=== PATIENT | female | born 1940 | race Caucasian/White ===

== ENCOUNTER 2016-12-20 20:11 | Observation (INO) | payer MEDICARE ==
[~2016-12-20] VITALS: Ht 162.6 cm; Wt 65.0 kg
[~2016-12-20 20:11] MED LIST: ACET80CH6 CHEW; CARV3.125 PO; CEFT250S PO; COEN100T PO; FEXO180 OR; FISH100020 PO; FLUT50SP EACH NARE; FURO20 PO; LEVO100T4 PO; MIRA25TA PO; NEUR100C PO; NEXI40CA PO; RAMI1.252 PO; RIVA20 PO; SUMA50TA2 PO; TAB-TAB PO; WAL-10TA2 PO; ZOLP10TA3 PO
[2016-12-20 20:35] VITALS: BP 154/69; PULSE 79; RESP 17; TEMP 99; O2SAT 98
--- NOTE | 2016-12-20 20:35 | PD ---
HPI Chief Complaint: altered mental status Time Seen by Provider: 20:34 Travel History International Travel<30 days: No Contact w/Intl Traveler<30days: No Traveled to known affect area: No History of Present Illness HPI 75-year-old female was brought into the emergency room by EMS after the family called 911 for abnormal behavior by the patient. The daughter is giving a very good history who was present in the room. She said that around 7:00 they were eating dinner and the daughter witnessed this. Her mother after she had finished of food suddenly started to scrape her plate in slow motion. This was a rapid to give motion which made the daughter aware of the abnormality. She asked the mother what she was doing and the mom started to respond slowly as if she did not realize what she was doing. Usually as per the daughter her mother is extremely sharp. She also tried to have her do a [id number] test and both her upper extremity were very wobbly approaching the nose. She had taken her pain medication about 2 hours prior to this event. As per the daughter she seemed like either she was having a seizure or very drugged. However she has been on this pain medication for couple years now and has never had this behavior. Patient did not take more than her usual dose of pain medication. Currently she was yawning and she was talking to me and her speech was slow. Daughter confirmed that this is slower than her usual. I was able to understand what patient was saying. She is AAO 3. Vital signs were stable. Patient is not complaining of any headache or chest pain. She says she just feels in general weak and heavy. Patient was diagnosed with muscular dystrophy over a year ago by a muscle biopsy. She sees Dr. Osborne for it. She is not on any medications for it and gets physical therapy. [facility] Past Medical History Narrative Medical List of her past medical, surgical, social and family history was reviewed from the nursing note. Hx Anticoagulant Therapy: Yes (XARELTO) Arthritis: Yes Asthma: No Autoimmune Disease: No Heart Rhythm Problems: No Cancer: Yes (LEFT BREAST 2004) Cardiovascular Problems: Yes High Cholesterol: Yes Chemotherapy: Yes Chest Pain: Yes Congestive Heart Failure: No COPD: No Cerebrovascular Accident: No Diminished Hearing: No Deep Vein Thrombosis: Yes Endocrine: No Gastrointestinal Disorders: Yes GERD: Yes Genitourinary: Yes (BLADDER SUSPENSION) Headaches: Yes Hepatitis: No Hiatal Hernia: No Hypertension: Yes Immune Disorder: No Implanted Vascular Access Dvce: Yes Musculoskeletal: Yes (Muscular Dystrophie) Neurologic: Yes Psychiatric: No Reproductive: No Respiratory: Yes Migraines: Yes Myocardial Infarction: No Seizures: No Sleep Apnea: No Ulcer: Yes Past Surgical History Abdominal Surgery: Yes AICD: No Appendectomy: Yes Body Medical Devices: COMPA EYE LENS Cardiac Surgery: Yes (Selenokhod Serial# [id number] Model#[id number]) Cholecystectomy: Yes (1991) Ear Surgery: No Endocrine Surgery: No Eye Surgery: Yes (cataract w implants) Genitourinary Surgery: Yes (BLADDER SUSPENSION) Gynecologic Surgery: Yes ([facility] oopherectomy 1973) Hysterectomy: Yes Mastectomy: Yes (left) Oral Surgery: Yes Pacemaker: Yes ([employer]TRONICS 3 WIRE) Thoracic Surgery: Yes (RT CAROTID ENDARECTOMY 2010) Tonsillectomy: Yes Other Surgery: Yes Social History Alcohol Use: Yes (SOCIALLY) Tobacco Use: No Substance Use: No Allergies-Medications (Allergen,Severity, Reaction): Coded Allergies: Adhesives (Verified Allergy, Severe, PAPER TAPE- ITCHING, 12/20/16) Codeine (Verified Allergy, Severe, Itching, 12/20/16) Oxycodone (Verified Allergy, Severe, 12/20/16) Shrimp (Verified Allergy, Severe, Rash, 12/20/16) Lipitor (Verified Allergy, Unknown, 12/20/16) PT DENIES THIS ALLERGY Comments List of her allergies reviewed from the nursing note. Reported Meds & Prescriptions Reported Meds & Active Scripts Active Reported Levothyroxine (Levothyroxine Sodium) 100 Mcg Tab 100 Mcg PO DAILY Duloxetine DR (Duloxetine HCl) 30 Mg Capdr 30 Mg PO HS Ambien (Zolpidem Tartrate) 10 Mg Tab 10 Mg PO HS PRN Bovill-3 Fish Oil/Vitamin (Fish Oil-Cholecalciferol) 1,000-1,000 Mg Cap 1 Cap PO DAILY Lasix (Furosemide) 20 Mg Tab 20 Mg PO DAILY Myrbetriq (Mirabegron) 50 Mg Tab 50 Mg PO DAILY Claritin (Loratadine) 10 Mg Cap 10 Mg PO DAILY Ubiquinol 100 Mg Cap 1 Cap PO DAILY D-Mannose Powder 1 Pow Pow 1 Cap PO BID Preservision Areds 2 (Multiple Vitamins W/ Minerals) 1 Cap 1 Cap PO DAILY Ramipril 1.25 Mg Cap 1.25 Mg PO DAILY Nexium (Esomeprazole DR) 20 Mg Capdr 20 Mg PO DAILY Fluticasone Nasal [place] 50 Mcg/Act Naspr 50 Mcg EACH NARE BID PRN 50 mcg/spray Spironolactone 25 Mg Tab 12.5 Mg PO BID Coreg (Carvedilol) 3.125 Mg Tab 3.125 Mg PO BID Centrum Silver (Multiple Vitamins W/ Minerals) 1 Tab 1 Tab PO DAILY Zyrtec Allergy (Cetirizine HCl) 10 Mg Tab 10 Mg PO DAILY Xarelto (Rivaroxaban) 20 Mg Tab 20 Mg PO DAILY Narrative Medication List of her home medications reviewed from the nursing note. Review of Systems Except as stated in HPI: all other systems reviewed are Neg Physical Exam Narrative GENERAL: Awake, alert, looks tired, no obvious distress SKIN: Focused skin assessment warm/dry. HEAD: Atraumatic. Normocephalic. EYES: Pupils equal and round. No scleral icterus. No injection or drainage. ENT: No nasal bleeding or discharge. Mucous membranes pink and moist. NECK: Trachea midline. No JVD. CARDIOVASCULAR: Regular rate and rhythm. No murmur appreciated. RESPIRATORY: No accessory muscle use. Clear to auscultation. Breath sounds equal bilaterally. GASTROINTESTINAL: Abdomen soft, non-tender, nondistended. Hepatic and splenic margins not palpable. MUSCULOSKELETAL: No obvious deformities. No clubbing. No cyanosis. No edema. NEUROLOGICAL: Awake and alert. No obvious cranial nerve deficits. Motor strength equal upper extremity 4 out of 5 and equal lower extremity 3 out of 5. Normal speech. NIH stroke score was 0 PSYCHIATRIC: Appropriate mood and affect; insight and judgment normal. Data Data Last Documented VS Vital Signs Date Time Temp Pulse Resp B/P Pulse Ox O2 Delivery O2 Flow Rate FiO2 12/20/16 20:54 83 18 154/69 99 Room Air 12/20/16 20:35 99.0 Orders Electrocardiogram (12/20/16 20:58) Prothrombin Time / Inr (Pt) (12/20/16 20:58) Act Partial Throm Time (Ptt) (12/20/16 20:58) Complete Blood Count With Diff (12/20/16 20:58) Basic Metabolic Panel (Bmp) (12/20/16 20:58) Troponin I (12/20/16 20:58) Urinalysis - C+S If Indicated (12/20/16 20:58) Ct Brain W/O Iv Contrast(Rout) (12/20/16 20:58) Chest, Single Ap (12/20/16 20:58) Ecg Monitoring (12/20/16 20:58) Iv Access Insert/Monitor (12/20/16 20:58) Oximetry (12/20/16 20:58) Sodium Chloride 0.9% Flush (Ns Flush) (12/20/16 21:00) Sodium Chlor 0.9% 250 Ml Inj (Ns 250 Ml (12/20/16 21:00) Eeg Study (12/20/16 ) Thyroid Stimulating Hormone (12/20/16 23:01) Admit Order (Ed Use Only) (12/20/16 23:04) Mri Brain W&W/O Contrast (12/21/16 ) Mra Brain W/O Contrast (Cow) (12/21/16 ) Labs Laboratory Tests Test 12/20/16 21:10 White Blood Count 5.1 TH/MM3 Red Blood Count 3.89 MIL/MM3 Hemoglobin 12.1 GM/DL Hematocrit 36.6 % Mean Corpuscular Volume 94.0 FL Mean Corpuscular Hemoglobin 31.0 PG Mean Corpuscular Hemoglobin 33.0 % Concent Red Cell Distribution Width 13.3 % Platelet Count 161 TH/MM3 Mean Platelet Volume 8.4 FL Neutrophils (%) (Auto) 45.6 % Lymphocytes (%) (Auto) 32.2 % Monocytes (%) (Auto) 18.7 % Eosinophils (%) (Auto) 2.9 % Basophils (%) (Auto) 0.6 % Neutrophils # (Auto) 2.3 TH/MM3 Lymphocytes # (Auto) 1.6 TH/MM3 Monocytes # (Auto) 1.0 TH/MM3 Eosinophils # (Auto) 0.1 TH/MM3 Basophils # (Auto) 0.0 TH/MM3 CBC Comment DIFF FINAL Differential Comment Prothrombin Time 12.0 SEC Prothromb Time International 1.1 RATIO Ratio Activated Partial 27.6 SEC Thromboplast Time Sodium Level 141 MEQ/L Potassium Level 4.4 MEQ/L Chloride Level 106 MEQ/L Carbon Dioxide Level 27.6 MEQ/L Anion Gap 7 MEQ/L Blood Urea Nitrogen 46 MG/DL Creatinine 0.77 MG/DL Estimat Glomerular Filtration 73 ML/MIN Rate Random Glucose 114 MG/DL Calcium Level 8.9 MG/DL Troponin I 0.05 NG/ML Thyroid Stimulating Hormone LESS THAN 3rd Gen 0.005 uIU/ML MDM Medical Decision Making Medical Screen Exam Complete: Yes Emergency Medical Condition: Yes Medical Record Reviewed: Yes Interpretation(s) Twelve-lead EKG was reviewed by me. Normal sinus rhythm, intermittently paced, normal axis, interventricular conduction delay. Heart rate of 77 bpm. Differential Diagnosis TIA, focal seizure, postictal Narrative Course 10:38 PM blood test results of back and within normal limit. CT scan of her head is within normal limit. Chest x-rays negative. Given the description and the presentation my suspicion is high for focal seizure with post ictal phase. I would like to admit the patient at least for observation at this point. I discussed this with the family and they understand. I ordered an MRI. However patient does have a pacemaker and AICD. I was told by the MRI that they would have to find out from the company if it is MRI compatible. At this point this MRI is not emergent and could wait till the morning. Awaiting for the hospitalist to call back. I will give her 1 dose of aspirin. I've also put a call out for neurology. Awaiting for Dr. Franco to call back. 11:05 PM I discussed the case with Dr. Franco and he was perfectly fine with the management so far. He agreed that there was a possibility of focal seizure. Since patient is on Xarelto no aspirin will be given. IV inquired about the reason for being on Xarelto from the family and it was because she had a DVT in her leg 3 years ago. Patient was admitted to the hospitalist. Procedures EKG Prior to Arrival: No Physician Communication Physician Communication Dr. Franco Diagnosis Primary Impression: Altered mental status Qualified Code: R40.0 - Somnolence Additional Impressions: Focal seizure Postictal state Admitting Information Admitting Physician Requests: Observation Rosy Kingston MD Dec 20, 2016 20:35
[2016-12-20 20:54] VITALS: BP 154/69; PULSE 83; RESP 18; O2SAT 99
[2016-12-20] MEDS ORDERED: SODIUM CHLORIDE 0.9% FLUSH 10 ML FLUSH IVF PRN (21:00)
[2016-12-20] MEDS ORDERED: SODIUM CHLOR 0.9% 250 ML INJ 250 ML IV ONE (21:00)
--- NOTE | 2016-12-20 21:37 | RADRPT ---
EXAM DATE/TIME: 12/20/2016 21:14 [facility] COMPARISON: CHEST SINGLE AP, January 23, 2016, 21:26. INDICATIONS : Short of breath MEDICAL HISTORY : Hypertension. Carcinoma, breast. SURGICAL HISTORY : Pacemaker. Left mastectomy with reconstruction. ENCOUNTER: Initial ACUITY: 1 day PAIN SCORE: 0/10 LOCATION: Bilateral chest FINDINGS: Moderate elevation of the right hemidiaphragm. Cardiome egaly. Clear lungs. Pacer/ICD device again se en. CONCLUSION: No acute disease. Galdino Amador MD on December 20, 2016 at 21:35 Board Certified Radiologist. This report was verified electronically.
[2016-12-20 21:47] LABS: AUTOMATED NEUTROPHIL # 2.3 TH/MM3 (1.8-7.7); BASOPHIL % 0.6 % (0.0-2.0); EOSINOPHIL # 0.1 TH/MM3 (0-0.4); EOSINOPHIL % 2.9 % (0.0-4.0); HEMATOCRIT 36.6 % (35.0-46.0); HEMO FLAGS DIFF FINAL; LYMPH % 32.2 % (9.0-44.0); LYMPHOCYTE # 1.6 TH/MM3 (1.0-4.8); MONO % 18.7 % (0.0-8.0); NEUT % 45.6 % (16.0-70.0); PLATELET COUNT 161 TH/MM3 (150-450); RED BLOOD COUNT 3.89 MIL/MM3 (4.00-5.30); RED CELL DISTRIBUTION WIDTH 13.3 % (11.6-17.2); WHITE BLOOD COUNT 5.1 TH/MM3 (4.0-11.0)
--- NOTE | 2016-12-20 21:56 | RADRPT ---
EXAM DATE/TIME: 12/20/2016 21:41 [facility] COMPARISON: CT BRAIN W/O CONTRAST, June 22, 2015, 20:42. INDICATIONS : Altered mental status. RADIATION DOSE: 39.03 CTDIvol (mGy) MEDICAL HISTORY : Gastroesophageal reflux disease. Cardiovascular disease Deep venous thrombosis.Breast cancer. Hyperte nsion. SURGICAL HISTORY : Mastectomy, left. Pacemaker.Hysterectomy.Cholecystecomy. ENCOUNTER: Initial ACUITY: 1 day PAIN SCALE: 0/10 LOCATION: cranial TECHNIQUE: Multiple contiguous axial images were obtained of the head. Using automated exposure control and adj ustment of the mA and/or kV according to patient size, radiation dose was kept as low as reasonably a chievable to obtain optimal diagnostic quality images. FINDINGS: There is mild volume loss and patchy periventricular white matter disease which is stable. No signs o f acute infarct, hemorrhage or mass. CONCLUSION: No significant change has occurred. Galdino Amador MD on December 20, 2016 at 21:54 Board Certified Radiologist. This report was verified electronically.
[2016-12-20 21:59] LABS: APTT (PATIENT) 27.6 SEC (24.3-30.1); INTERNATIONAL NORMALIZED RATIO 1.1 RATIO
[2016-12-20 22:11] LABS: BICARBONATE 27.6 MEQ/L (21.0-32.0); POTASSIUM 4.4 MEQ/L (3.5-5.1)
[2016-12-20] MEDS ORDERED: ZYRT10TA PO (22:23)
[2016-12-20] MEDS ORDERED: SPIR25TA PO (22:23)
[2016-12-20] MEDS ORDERED: FLUT50SP EACH NARE (22:23)
[2016-12-20] MEDS ORDERED: PRESCAP5 PO (22:23)
[2016-12-20] MEDS ORDERED: RAMI1.252 PO (22:23)
[2016-12-20] MEDS ORDERED: XARE20TA PO (22:23)
[2016-12-20] MEDS ORDERED: FURO1TAB62 PO (22:23)
[2016-12-20] MEDS ORDERED: CENTTAB PO (22:23)
[2016-12-20] MEDS ORDERED: MIRA50TA PO (22:23)
[2016-12-20] MEDS ORDERED: CARV3.125 PO (22:23)
[2016-12-20] MEDS ORDERED: D-MAPOW8 PO (22:23)
[2016-12-20] MEDS ORDERED: NEXI20CA PO (22:23)
[2016-12-20] MEDS ORDERED: UBIQ100C PO (22:23)
[2016-12-20] MEDS ORDERED: CLAR10CA3 PO (22:23)
[2016-12-20] MEDS ORDERED: LEVO100T5 PO (22:27)
[2016-12-20] MEDS ORDERED: AMBI10TA PO (22:27)
[2016-12-20] MEDS ORDERED: OMEGCAP PO (22:27)
[2016-12-20] MEDS ORDERED: DULO1CAP2 PO (22:27)
[2016-12-20] MEDS ORDERED: ZOLPIDEM TARTRATE 10 MG TAB PO PRN (23:30)
[2016-12-20] MEDS ORDERED: SODIUM CHLORIDE 0.9% FLUSH 10 ML FLUSH IV FLUSH PRN (23:30)
[2016-12-20] MEDS ORDERED: NALOXONE HCL 0.4 MG/ML AMP IV PRN (23:30)
[2016-12-20 23:59] LABS: BLOOD, URINE NEG (NEG); GLUCOSE,URINE NEG (NEG); KETONE, URINE NEG (NEG); MUCUS URINE FEW /lpf (OCC); NITRITE,URINE NEG (NEG); SQUAMOUS EPITHELIAL CELL URINE <1 /hpf (0-5); URINE COLOR YELLOW (YELLW/STRAW)
[2016-12-21] VITALS (10 sets, daily range): BP systolic 109–162; BP diastolic 60–74; PULSE 74–84; RESP 15–20; TEMP 95.8–98.6; O2SAT 95–99
[2016-12-21] LABS: COMMENT (UR) CATH-CULT NOT IND; CULTURE IF INDICATED CATH CULTURE NOT IND
[2016-12-21] MEDS ORDERED: DULoxetine HCl DR 30 MG CAP PO ONE (01:30)
--- NOTE | 2016-12-21 01:43 | HHI.HP ---
[facility] Anand Evans M.D. Admission Diagnosis altered mental status, possible focal seizure Diagnoses: Travel History International Travel<30 Days: No Contact w/Intl Traveler <30 Da: No Traveled to Known Affected Are: No History of Present Illness History from patient, ER physician communication, and review of medical records. Patient reported that she does not remember the entire event. She states she doesn't even remember how she got to the hospital. However according to her daughter spoke to the ER physician, patient was at dinner table eating dinner and started tapping her fork on the table. When asked why she was doing that, patient was not aware of it. Patient also was not able to answer questions properly. She was having extremely slow speech. Patient stated that she does not even remember her daughter asking her all these questions. She thought somehow that she finished her dinner and was in the kitchen. She however is denies passing out episode. She stated her daughter states she was awake all this time with her eyes opened and just was extremely slow in response. Patient denies any new medications. denies any prior history of seizures. She reports she is taking pain medications but she has been on it for many years and only takes it once a day or so. She is also taking Cymbalta which was started a year ago. Patient however reported that she has syncopal episodes previously and does happen quite often. She states for this reason, she has not driven a car for 3 years. She denies any urinary or bowel incontinence. Patient also denies any recent fever/nausea/vomiting/diarrhea. She denies any black color stool or red color stool. She denies any chest pain/palpitations/shortness of breath/focal weakness. She reports of history of frequent bladder infections and the latest one was about a month ago for which she took Cipro. Review of Systems Except as stated in HPI: all other systems reviewed are Neg Past Family Social History Past Medical History htn - but under control ; had low bp easily ppm aicd afib chf - was 30% musuclar dystrophy insomnia dvt - on xarelto hypothyroidism breast ca- s/p left mastectomy ; s/pchemo; herceptin - finsihed 2006 right eye area canceraous Past Surgical History mastectomy hysterectomy right eye area tumore removal bladder lift bilateral oopherectomy appendectomy 1992- cholecystectomy Allergies: Coded Allergies: Adhesives (Verified Allergy, Severe, PAPER TAPE- ITCHING, 12/20/16) Codeine (Verified Allergy, Severe, Itching, 12/20/16) Oxycodone (Verified Allergy, Severe, 12/20/16) Shrimp (Verified Allergy, Severe, Rash, 12/20/16) Lipitor (Verified Allergy, Unknown, 12/20/16) PT DENIES THIS ALLERGY Family History brother- agent orange exposure- of cancer multiple members Social History no smoking/ no drinking/ no drugs Physical Exam Vital Signs Vital Signs Date Time Temp Pulse Resp B/P Pulse Ox O2 Delivery O2 Flow Rate FiO2 12/21/16 01:09 95.8 77 18 162/74 99 12/21/16 00:35 77 15 151/72 97 Room Air 12/21/16 00:34 19 97 Room Air 12/20/16 20:54 83 18 154/69 99 Room Air 12/20/16 20:40 81 13 99 Room Air 12/20/16 20:35 99.0 79 17 154/69 98 Physical Exam GENERAL: This is a well-nourished, well-developed patient, in no apparent distress. SKIN: No rashes, ecchymoses or lesions. Cool and dry. HEAD: Atraumatic. Normocephalic. No temporal or scalp tenderness. EYES: No scleral icterus. No injection or drainage. ENT: Nose without bleeding, purulent drainage or septal hematoma.. Airway patent. NECK: Trachea midline. No JVD CARDIOVASCULAR: Regular rate and rhythm without murmurs, gallops, or rubs. RESPIRATORY: Clear to auscultation. Breath sounds equal bilaterally. No wheezes , rales, or rhonchi. GASTROINTESTINAL: Abdomen soft, non-tender, nondistended. No guarding. MUSCULOSKELETAL: Extremities without clubbing, cyanosis, or edema.. No calf tenderness NEUROLOGICAL: Awake and alert. Motor and sensory grossly within normal limits. Normal speech. Laboratory Laboratory Tests Test 12/20/16 12/20/16 21:10 23:45 White Blood Count 5.1 Red Blood Count 3.89 Hemoglobin 12.1 Hematocrit 36.6 Mean Corpuscular Volume 94.0 Mean Corpuscular Hemoglobin 31.0 Mean Corpuscular Hemoglobin 33.0 Concent Red Cell Distribution Width 13.3 Platelet Count 161 Mean Platelet Volume 8.4 Neutrophils (%) (Auto) 45.6 Lymphocytes (%) (Auto) 32.2 Monocytes (%) (Auto) 18.7 Eosinophils (%) (Auto) 2.9 Basophils (%) (Auto) 0.6 Neutrophils # (Auto) 2.3 Lymphocytes # (Auto) 1.6 Monocytes # (Auto) 1.0 Eosinophils # (Auto) 0.1 Basophils # (Auto) 0.0 CBC Comment DIFF FINAL Differential Comment Prothrombin Time 12.0 Prothromb Time International 1.1 Ratio Activated Partial 27.6 Thromboplast Time Sodium Level 141 Potassium Level 4.4 Chloride Level 106 Carbon Dioxide Level 27.6 Anion Gap 7 Blood Urea Nitrogen 46 Creatinine 0.77 Estimat Glomerular Filtration 73 Rate Random Glucose 114 Calcium Level 8.9 Troponin I 0.05 Thyroid Stimulating Hormone LESS THAN 3rd Gen 0.005 Urine Color YELLOW Urine Turbidity CLEAR Urine pH 6.0 Urine Specific [place] 1.020 Urine Protein NEG Urine Glucose (UA) NEG Urine Ketones NEG Urine Occult Blood NEG Urine Nitrite NEG Urine Bilirubin NEG Urine Urobilinogen LESS THAN 2.0 Urine Leukocyte Esterase SMALL Urine RBC 1 Urine WBC 3 Urine Squamous Epithelial <1 Cells Urine Mucus FEW Microscopic Urinalysis Comment CATH-CULT NOT IND Result Diagram: 12/20/16210912/20/162109 Imaging Last [address] 12/20/162057 Signed Impressions: Service Date/Time: Tuesday, December 20, 2016 21:41 - CONCLUSION: No significant change has occurred. Galdino Amador MD Chest X-Ray 12/20/162057 Signed Impressions: Service Date/Time: Tuesday, December 20, 2016 21:14 - CONCLUSION: No acute disease. Galdino Amador MD Assessment and Plan Problem List: (1) Focal seizure ICD Code: R56.9 Status: Acute (2) Altered mental status ICD Code: R41.82 Status: Acute (3) Postictal state ICD Code: R56.9 Status: Acute Assessment and Plan Impression: Possible seizures History of brain cyst per patient. PMH: htn - but under control ; had low bp easily ppm aicd afib chf - was 30% musuclar dystrophy insomnia dvt - on xarelto hypothyroidism breast ca- s/p left mastectomy ; s/pchemo; herceptin - finsihed 2006 right eye area canceraous lesion Plan: Seizure precautions. EEG. Neurology consult. Patient reports that she has history of her brain cyst in previous CT imaging studies. However she states this is quite small. May need MRI studies to confirm whether these are the focus of her seizures. However patient does have pacemaker/defibrillator. Would need to call [employer] to deactivate. We'll follow up on patient's neurologist recommendations. Resume home meds. DVT prophylaxis Xarelto. Discussed Condition With patient, ER Problem Qualifiers (1) Altered mental status: Qualified Code: R40.0 - Somnolence Trini Alvarado MD Dec 21, 2016 01:43
[2016-12-21] MEDS ORDERED: LEVOTHYROXINE SODIUM 100 MCG TAB PO SCH (06:00)
[2016-12-21 07:05] LABS: AUTOMATED NEUTROPHIL # 1.8 TH/MM3 (1.8-7.7); BASOPHIL % 0.8 % (0.0-2.0); EOSINOPHIL # 0.2 TH/MM3 (0-0.4); EOSINOPHIL % 4.7 % (0.0-4.0); HEMATOCRIT 35.5 % (35.0-46.0); HEMO FLAGS DIFF FINAL; LYMPH % 38.5 % (9.0-44.0); LYMPHOCYTE # 1.8 TH/MM3 (1.0-4.8); MEAN CELL VOLUME 94.2 FL (80.0-100.0); MEAN CORPUSCULAR HEMOGLOBIN 32.4 PG (27.0-34.0); MEAN CORPUSCULAR HGB CONC 34.4 % (32.0-36.0); MONO % 18.3 % (0.0-8.0); NEUT % 37.7 % (16.0-70.0); PLATELET COUNT 157 TH/MM3 (150-450); RED BLOOD COUNT 3.77 MIL/MM3 (4.00-5.30); RED CELL DISTRIBUTION WIDTH 13.3 % (11.6-17.2); WHITE BLOOD COUNT 4.7 TH/MM3 (4.0-11.0)
[2016-12-21 07:45] LABS: BICARBONATE 26.9 MEQ/L (21.0-32.0); POTASSIUM 4.2 MEQ/L (3.5-5.1)
--- NOTE | 2016-12-21 08:45 | EKG ---
Date Performed: 12/20/2016 Time Performed: 21:57:02 PTAGE: 75 years EKG: Normal Sinus rhythm wiuth occasional aberrantely conducted QRS complexes Voltage criteria for LVH High lateral T wave in version, consider ischemia ABNORMAL ECG PREVIOUS TRACING : 01/23/2016 21.16 Compared to previous tracing, aberrantly conducted complexe s are now evident, nonspecific intraventricular conduction delay morphology has changed. DOCTOR: Boo Velazquez Interpretating Date/Time 12/21/2016 08:44:02
[2016-12-21] MEDS ORDERED: SODIUM CHLORIDE 0.9% FLUSH 10 ML FLUSH IV FLUSH SCH (09:00)
[2016-12-21] MEDS ORDERED: PANTOPRAZOLE SOD 20 MG DELAYED RELEASE TAB PO SCH (09:00)
[2016-12-21] MEDS ORDERED: RAMIPRIL 1.25 MG CAP PO SCH (09:00)
[2016-12-21] MEDS ORDERED: CARVEDILOL 3.125 MG TAB PO SCH (09:00)
[2016-12-21] MEDS ORDERED: SPIRONOLACTONE 25 MG TAB PO SCH (09:00)
[2016-12-21] MEDS ORDERED: FUROSEMIDE 20 MG TAB PO SCH (09:00)
[2016-12-21] MEDS ORDERED: RIVAROXABAN 20 MG TAB PO SCH (09:00)
[2016-12-21] MEDS ORDERED: GADODIAMIDE PF 287 MG/ML 5 ML VIAL (for RAD MRI) IV ONE (09:45)
--- NOTE | 2016-12-21 10:54 | RADRPT ---
EXAM DATE/TIME: 12/21/2016 09:18 [facility] COMPARISON: MRA BRAIN W/O CONTRAST, June 24, 2015, 12:29. INDICATIONS : Dizziness. Altered mental status. MEDICAL HISTORY : Carcinoma, breast. Hypertension. SURGICAL HISTORY : Tonsillectomy. Appendectomy. Cholecystectomy. carotid artery, Medtronic pacer/defib, left mastectomy, bladder lift ENCOUNTER: Subsequent ACUITY: 2 day PAIN SCORE: 0/10 LOCATION: cranial Please note a normal MRA of the brain does not entirely exclude the possibility of a small aneurysm, nor the possibility of distal intracranial vessel disease. TECHNIQUE: 3D time of flight MRA was performed. Source images, multiplanar STS MIP, and 3D volume MIP reconstru ctions were reviewed. FINDINGS: There is excellent visualization of the major intracranial arteries out to the second-order branch ve ssels. There is no evidence for aneurysm, vessel truncation or stenosis, and no evidence for vascula r malformation. There is a patent posterior communicating artery on the left. An aplastic A1 segment is present on the right CONCLUSION: 1. Froylan Duran MD on December 21, 2016 at 10:51 Board Certified Radiologist. This report was verified electronically.
--- NOTE | 2016-12-21 10:56 | RADRPT ---
EXAM DATE/TIME: 12/21/2016 09:18 [facility] COMPARISON: MRI BRAIN W & W/O CONTRAST, May 04, 2013, 13:16. INDICATIONS : Altered mental status. Dizziness. CONTRAST: 13 cc Omniscan (gadodiamide) IV MEDICAL HISTORY : Carcinoma, breast. Hypertension. SURGICAL HISTORY : Tonsillectomy. Appendectomy. Cholecystectomy. carotid artery, Medtronic pacer/defib, left mastectomy, bladder lift ENCOUNTER: Subsequent ACUITY: 1 day PAIN SCORE: 0/10 LOCATION: cranial TECHNIQUE: Multiplanar, multisequence MRI of the brain was performed both prior to and following the administrat ion of paramagnetic contrast. FINDINGS: MRI of the brain is performed in sagittal, axial and coronal planes. The craniocervical junction and midline structures are unremarkable. Diffusion weighted images demonstrate no abnormality. There is n o evidence of acute cortical infarction, acute hemorrhage, mass effect or midline shift is seen. Ther e is periventricular hyperintensity on the T2 weighted images consistent with small vessel vascular d isease significantly more than expected in a patient of this age. Following the administration of con trast no abnormal enhancement is identified. Posterior fossa structures are unremarkable. CONCLUSION: 1. No evidence of acute intracranial pathology. Chronic ischemic changes as above. Froylan Duran MD on December 21, 2016 at 10:53 Board Certified Radiologist. This report was verified electronically.
[2016-12-21] MEDS ORDERED: ACETAMINOPHEN 325 MG TAB PO PRN (12:45)
--- NOTE | 2016-12-21 15:11 | PD.CONS ---
History of Present Illness Service Neurology Consult Requested By [facility] Reason for Consult sz Primary Care Physician Anand Evans M.D. History of Present Illness 75 y/o f admitted for amnestic type episode. after dinner. became confused, slow to think, respond and move. improved by the time she got to er. the pt does not have any recollection of this. no luna, no b/b incontinence. no jerking. she is on xarelto. glucose 114. bp 154/69. ct brain naicp. mri brain no acute lesion. mra brain nml. no previous occurrence similar to this. no hx of sz. hx of recurrent syncope. has a pacemaker. followed by cardiology locally and has been seen at [facility] and also followed at [facility]. has depressed EF. She denies any urinary or bowel incontinence. Patient also denies any recent fever/nausea/vomiting/diarrhea. She denies any chest pain/palpitations/shortness of breath/focal weakness. Review of Systems Except as stated in HPI: all other systems reviewed are Neg Past Family Social History Past Medical History htn - but under control ; had low bp easily ppm aicd afib chf - was 30% muscular dystrophy insomnia dvt - on xarelto hypothyroidism breast ca- s/p left mastectomy ; s/p chemo; herceptin - finsihed 2006 right eye area cancerous Past Surgical History mastectomy hysterectomy right eye area tumore removal bladder lift bilateral oopherectomy appendectomy 1992- cholecystectomy Allergies: Coded Allergies: Adhesives (Verified Allergy, Severe, PAPER TAPE- ITCHING, 12/20/16) Codeine (Verified Allergy, Severe, Itching, 12/20/16) Oxycodone (Verified Allergy, Severe, 12/20/16) Shrimp (Verified Allergy, Severe, Rash, 12/20/16) Lipitor (Verified Allergy, Unknown, 12/20/16) PT DENIES THIS ALLERGY Family History mother with probable muscular dystrophy Social History no smoking/ no drinking/ no drugs Review of Systems All other ROS: ROS reviewed as documented in chart Past Family Social History Allergies: Coded Allergies: Adhesives (Verified Allergy, Severe, PAPER TAPE- ITCHING, 12/20/16) Codeine (Verified Allergy, Severe, Itching, 12/20/16) Oxycodone (Verified Allergy, Severe, 12/20/16) Shrimp (Verified Allergy, Severe, Rash, 12/20/16) Lipitor (Verified Allergy, Unknown, 12/20/16) PT DENIES THIS ALLERGY Active Ordered Medications Current Medications Medications (Trade) Dose Ordered Sig/Ester Route Start Time Stop Time Status Last Admin (NS Flush) 2 ml UNSCH PRN IV FLUSH 12/20/16 23:30 (NS Flush) 2 ml BID IV FLUSH 12/21/16 09:00 12/21/16 10:31 (Narcan Inj) 0.4 mg UNSCH PRN IV 12/20/16 23:30 (Coreg) 3.125 mg BID PO 12/21/16 09:00 12/21/16 08:41 (Cymbalta Dr) 30 mg HS PO 12/21/16 21:00 (Lasix) 20 mg DAILY PO 12/21/16 09:00 12/21/16 08:41 (Altace) 1.25 mg DAILY PO 12/21/16 09:00 12/21/16 08:40 (Xarelto) 20 mg DAILY PO 12/21/16 09:00 12/21/16 08:41 (Aldactone) 12.5 mg BID PO 12/21/16 09:00 12/21/16 10:31 (Ambien) 10 mg HS PRN PO 12/20/16 23:30 12/21/16 02:11 (Protonix) 20 mg DAILY PO 12/21/16 09:00 12/21/16 08:41 Patient Own Medication PT OWN MED: Tabl... DAILY PO 12/22/16 09:00 Future Hold (Synthroid) 50 mcg DAILY@06 PO 12/22/16 06:00 (Tylenol) 650 mg Q4H PRN PO 12/21/16 12:45 12/21/16 13:01 Exam I&O / VS 12/20/16 12/20/16 12/21/16 15:00 23:00 07:00 Intake Total 240 ml Output Total 300 ml Balance -60 ml Intake Oral 240 ml Output Urine Total 300 ml Vital Signs Date Time Temp Pulse Resp B/P Pulse Ox O2 Delivery O2 Flow Rate FiO2 12/21/16 12:04 84 12/21/16 11:16 97.6 74 20 137/61 96 12/21/16 07:54 97.6 76 18 153/67 95 12/21/16 04:00 97.2 83 17 134/60 98 12/21/16 03:59 80 12/21/16 01:30 77 12/21/16 01:09 95.8 77 18 162/74 99 12/21/16 00:35 77 15 151/72 97 Room Air 12/21/16 00:34 19 97 Room Air 12/20/16 20:54 83 18 154/69 99 Room Air 12/20/16 20:40 81 13 99 Room Air 12/20/16 20:35 99.0 79 17 154/69 98 General: Alert and Oriented, No acute distress Eye: EOMI Respiratory: Non-labored respirations Neurologic: Alert, Oriented, No focal defects, CN II-XII intact Psychiatric: Cooperative, Appropriate mood & affect, Normal judgement Exam Comments ox 3. no aphasia. follows. eomi, vff, face sym, panda to gravity, mild proximal weakness Review/Management Diagnosis/Plan: (1) Altered mental status Plan: resolved transient etiology: sz/tia/cardiac has depressed EF on xarelto mri/mra negative had recent carotid u/s with cardiology- negative recs f/u eeg if negative ok to d/c home later today or in am and f/u with us in the office tele pacemaker should get interrogated d/w pt, spouse, daughter no driving (2) A-fib (3) Hereditary progressive muscular dystrophy Plan: +muscle biopsy +hx in mother (4) CHF (congestive heart failure) Problem Qualifiers (1) Altered mental status: Qualified Code: R40.0 - Somnolence (2) A-fib: Qualified Code: I48.0 - Paroxysmal atrial fibrillation (3) CHF (congestive heart failure): Darrell Yarbrough MD Dec 21, 2016 15:11
--- NOTE | 2016-12-21 17:42 | HHI.PR ---
Addendum to Inpatient Note Addendum Reason: Additional Documentation Additional Information RN informs me that the patient left AGAINST MEDICAL ADVICE. Reportedly the patient and family did not want to stay another night in the hospital in the observation unit because they did not like the room. Neurology evaluated the patient and recommended following up EEG results and having pacemaker interrogated. (Roberto Mora) Roberto Mora Dec 21, 2016 17:42 Mandie Hickey MD Dec 21, 2016 21:23
--- NOTE | 2016-12-21 19:22 | MG ---
cc: [facility] Lab No: Date: 12/21/2016 Age: Sex: F Race: Cc. TEST NUMBER [id number] TECHNIQUE 17 channel EEG. DESCRIPTION Background rhythm is symmetrical alpha rhythm, frequency 8-9 Hz. Amplitude is 20 microvolts. During drowsiness there is mild slowing in the theta range. Some sleep activity is identified as well. There are no lateralizing features seen and no epileptiform discharges are present. Photic results in a fairly well-developed driving response. Vertex sharp waves are seen consistent with sleep. I do not see any definite epileptiform discharges. INTERPRETATION Normal EEG. MD LYLE Salas/BOONE /7:09 PM /7:20 PM
[2016-12-21] MEDS ORDERED: DULoxetine HCl DR 30 MG CAP PO SCH (21:00)
[2016-12-22] MEDS ORDERED: LEVOTHYROXINE SODIUM 50 MCG TAB PO SCH (06:00)
[2016-12-22] MEDS ORDERED: MIRABEGRON 50 MG PO SCH (09:00)
== END 2016-12-21 17:19 | disposition home or self-care (01) ==
LOC: NEPE 20:11 → NEDA 23:06 → NEPFCDU 12-21 00:47
PROVIDERS: ADMIT Hospitalist; ATTEND Hospitalist
DX: G40.89 Other seizures (principal); R40.0 Somnolence; G71.0 Muscular dystrophy; I48.0 Paroxysmal atrial fibrillation; I11.0 Hypertensive heart disease with heart failure; I50.9 Heart failure, unspecified; E03.9 Hypothyroidism, unspecified; E78.00 Pure hypercholesterolemia, unspecified; K21.9 Gastro-esophageal reflux disease without esophagitis; Z79.01 Long term (current) use of anticoagulants; Z85.3 Personal history of malignant neoplasm of breast; Z90.12 Acquired absence of left breast and nipple; Z92.21 Personal history of antineoplastic chemotherapy; Z95.0 Presence of cardiac pacemaker
CPT/HCPCS: 70450; 70544; 70553; 71010; 80048; 81001; 84443; 84484; 85025; 85610; 85730; 93005; 95819; 96374; 99285; A9579; G0378; J7050

== ENCOUNTER → 2017-04-28 | Outpatient (CLI) | payer MEDICARE ==
[~2017-04-28] MED LIST changes: -ACET80CH6 CHEW; +AMBI10TA PO; -CEFT250S PO; +CENTTAB PO; +CLAR10CA3 PO; -COEN100T PO; +D-MAPOW8 PO; +DULO1CAP2 PO; -FEXO180 OR; -FISH100020 PO; +FURO1TAB62 PO; -FURO20 PO; -LEVO100T4 PO; +LEVO100T5 PO; -MIRA25TA PO; +MIRA50TA PO; -NEUR100C PO; +NEXI20CA PO; -NEXI40CA PO; +OMEGCAP PO; +PRESCAP5 PO; -RIVA20 PO; +SPIR25TA PO; -SUMA50TA2 PO; -TAB-TAB PO; +UBIQ100C PO; -WAL-10TA2 PO; +XARE20TA PO; -ZOLP10TA3 PO; +ZYRT10TA PO
--- NOTE | 2017-04-28 16:00 | RADRPT ---
EXAM DATE/TIME: 04/28/2017 14:13 [facility] COMPARISON: No previous studies available for comparison. INDICATIONS : Radiculopathy. MEDICAL HISTORY : Carcinoma, breast. Hypertension. SURGICAL HISTORY : Appendectomy. Carotid endarterectomy. Cholecystectomy. Medtronic pacer/defib, left mastectomy, bladde r lift, hysterectomy. ENCOUNTER: Initial ACUITY: 1 week PAIN SCORE: 3/10 LOCATION: Lower back. TECHNIQUE: Multiplanar multisequence MRI of the lumbar spine was performed without contrast. FINDINGS: MRI of the lumbar spine was performed in sagittal and axial planes. There is anterolisthesis likely r elated to facet arthritis at L5-S1-1-3 to 4 mm with retrolisthesis of L2-L3 and L3-L4. There is multi level disc space narrowing and marginal osteophyte formation maximal at L2-L3. There is a nodule in t he right adrenal gland likely reflecting adenoma measuring 2 cm No focal areas of marrow replacement are identified. The conus terminates normally. Axial images were performed from T12-L1 through L5-S1. T12-L1: There is no significant spinal canal stenosis. There is a tiny central protrusion to the right withou t spinal stenosis or neural foraminal narrowing. The neural foramina are clear bilaterally. L1-L2: There is mild annular bulge of the disc. There is moderate facet arthritis bilaterally with ligamentu m flavum hypertrophy. The neural foramina are clear bilaterally. L2-L3: There is broad-based annular bulge of disc. There is moderate to severe spinal canal stenosis. There is severe neural foraminal narrowing on the right. There is mild left sided neural foraminal narrowin g. L3-L4: There is mild annular bulge of the disc. There is mild to moderate spinal canal stenosis. There is mo derate facet arthritis bilaterally with ligamentum flavum hypertrophy. There is severe neural foramin al narrowing on the left. L4-L5: There is broad-based annular bulge of disc. There is severe facet arthritis bilaterally with ligament um flavum hypertrophy impinging on the thecal sac. The neural foramina are clear bilaterally. L5-S1: There is broad-based annular bulge of disc. There is severe spinal canal stenosis. . There is severe neural foraminal narrowing bilaterally. CONCLUSION: 1. 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 2. Severe multilevel foraminal narrowing. Froylan Duran MD on April 28, 2017 at 15:10 Board Certified Radiologist. This report was verified electronically.
--- NOTE | 2017-04-28 16:06 | RADRPT ---
EXAM DATE/TIME: 04/28/2017 14:13 [facility] COMPARISON: No previous studies available for comparison. INDICATIONS : Weakness. Known MRI Precautions: Pacemaker. Sedation utilized? Anesthesia present? MRI reaction? If Yes, explain : MEDICAL HISTORY : Carcinoma, breast. Hypertension. SURGICAL HISTORY : Appendectomy. Carotid endarterectomy. Cholecystectomy. Medtronic pacer/defib, left mastectomy, bladde r lift, hysterectomy. ENCOUNTER: Initial ACUITY: 1 week PAIN SCORE: 3/10 LOCATION: Left hip. TECHNIQUE: Multiplanar, multisequence MRI examination was performed without contrast. FINDINGS: There is no evidence of acute fracture. No focal areas of marrow placement are identified. The joint space is maintained. A physiologic amount of fluid is present within the joint. Soft tissue structur es are intact with normal signal intensity. No tendon abnormality is identified. CONCLUSION: 1. Negative MRI of the left hip Froylan Duran MD on April 28, 2017 at 15:58 Board Certified Radiologist. This report was verified electronically.
== END ==
LOC: HRAD 13:07
PROVIDERS: ATTEND Specialist
DX: M47.27 Other spondylosis with radiculopathy, lumbosacral region (principal); M62.81 Muscle weakness (generalized); G71.0 Muscular dystrophy
CPT/HCPCS: 72148; 73721

== ENCOUNTER 2017-08-05 22:13 | Emergency (ER) | payer MEDICARE ==
[~2017-08-05] VITALS: Ht 162.6 cm; Wt 67.0 kg
[~2017-08-05 22:13] MED LIST changes: -UBIQ100C PO; +UBIQ1CAP2 PO
[2017-08-05 22:15] VITALS: BP 112/77; PULSE 91; RESP 16; TEMP 97.9; O2SAT 96
[2017-08-05] MEDS ORDERED: D-MAPOW4 (22:44)
[2017-08-05] MEDS ORDERED: OCUVTAB4 PO (22:44)
[2017-08-05] MEDS ORDERED: LEVE500 PO (22:44)
[2017-08-05] MEDS ORDERED: CETI10CH CHEW (22:44)
[2017-08-05] MEDS ORDERED: ACETAMINOPHEN 325 MG TAB PO ONE (22:45)
--- NOTE | 2017-08-05 22:50 | RADRPT ---
EXAM DATE/TIME: 08/05/2017 22:43 [facility] COMPARISON: No previous studies available for comparison. INDICATIONS : Pain from fall. MEDICAL HISTORY : None. SURGICAL HISTORY : None. ENCOUNTER: Initial ACUITY: 1 day PAIN SCORE: 9/10 LOCATION: Right medial wrist. FINDINGS: There is an acute fracture involving the distal shaft of the right ulna. The radius is intact. Modera te osteoarthritis is noted involving the first carpometacarpal joint. Diffuse osteopenia is noted. CONCLUSION: 1. Acute fracture involving the distal shaft of the right ulna. 2. Diffuse osteopenia. 3. Moderate osteoarthritis is noted involving the first carpometacarpal joint. Enrique Navarro MD on August 05, 2017 at 22:47 Board Certified Radiologist. This report was verified electronically.
--- NOTE | 2017-08-05 23:05 | RADRPT ---
EXAM DATE/TIME: 08/05/2017 22:40 [facility] COMPARISON: CT BRAIN W/O CONTRAST, December 20, 2016, 21:41. INDICATIONS : Trauma, patient fell. RADIATION DOSE: 56.41 CTDIvol (mGy) MEDICAL HISTORY : Hypertension. Cardiovascular disease SURGICAL HISTORY : Pacemaker. Cholecystectomy.Appendectomy. ENCOUNTER: Initial ACUITY: 1 day PAIN SCALE: 3/10 LOCATION: cranial TECHNIQUE: Multiple contiguous axial images were obtained of the head. Using automated exposure control and adj ustment of the mA and/or kV according to patient size, radiation dose was kept as low as reasonably a chievable to obtain optimal diagnostic quality images. DICOM format image data is available electro nically for review and comparison. FINDINGS: CEREBRUM: Cerebral atrophy is stable. No evidence of midline shift, mass lesion, hemorrhage or acute infarction . No extra-axial fluid collections are seen. Mild to moderate periventricular and subcortical white matter small vessel ischemic changes are noted bilaterally. POSTERIOR FOSSA: The cerebellum and brainstem are intact. The 4th ventricle is midline. The cerebellopontine angle i s unremarkable. EXTRACRANIAL: The visualized portion of the orbits is intact. SKULL: The calvaria is intact. No evidence of skull fracture. CONCLUSION: 1. Stable cerebral atrophy and mild to moderate periventricular/subcortical white matter small vessel ischemic changes bilaterally. 2. No acute infarct, acute hemorrhage, mass effect or extra-axial fluid collections. Enrique Navarro MD on August 05, 2017 at 23:00 Board Certified Radiologist. This report was verified electronically.
--- NOTE | 2017-08-05 23:22 | PD ---
HPI . Wrist injury Chief Complaint: Fall Time Seen by Provider: 22:32 Travel History International Travel<30 days: No Contact w/Intl Traveler<30days: No Traveled to known affect area: No History of Present Illness HPI This patient has a history of muscular dystrophy which makes her prone to falling. She has had 2 falls today. She fell earlier today and struck her head. She denies loss of consciousness but is on Xarelto. She has not had any subsequent symptoms of head injury such as blurred vision, intractable vomiting , confusion. She had a second fall this evening injuring her right wrist. She comes in complaining with continued pain in the wrist. Pain is exacerbated by movement. Pain is rated 9/10. She has not taken any Tylenol, etc. for the pain. PFSH Past Medical History Hx Anticoagulant Therapy: Yes (XERALTO) Arthritis: Yes Asthma: No Autoimmune Disease: No Heart Rhythm Problems: No Cancer: Yes (LEFT BREAST 2003) High Cholesterol: Yes Chemotherapy: Yes Chest Pain: Yes Congestive Heart Failure: No COPD: No Cerebrovascular Accident: No Diminished Hearing: No Deep Vein Thrombosis: Yes Endocrine: No Gastrointestinal Disorders: Yes GERD: Yes Genitourinary: Yes (bladder suspension) Headaches: Yes Hepatitis: No Hiatal Hernia: No Hypertension: Yes Immune Disorder: No Implanted Vascular Access Dvce: Yes Medical other: Yes (LEFT EYE WET MACULAR DEGERATION) Musculoskeletal: Yes (Muscular Dystrophy) Neurologic: Yes Psychiatric: No Reproductive: No Respiratory: Yes Migraines: Yes Myocardial Infarction: No Seizures: No Sleep Apnea: No Ulcer: Yes Tetanus Vaccination: < 5 Years ?: Not Menopausal: Yes Past Surgical History Abdominal Surgery: Yes AICD: No Appendectomy: Yes Body Medical Devices: COMPA EYE LENS Cardiac Surgery: Yes (Medtronic Serial# [id number] Model#[id number]) Cholecystectomy: Yes (1991) Ear Surgery: No Endocrine Surgery: No Eye Surgery: Yes (cataract w implants) Genitourinary Surgery: Yes (BLADDER SUSPENSION) Gynecologic Surgery: Yes ([facility] oopherectomy 1973) Hysterectomy: Yes Mastectomy: Yes (left) Oral Surgery: Yes Pacemaker: Yes ([employer]TR[employer] 3 WIRE, DEFIB) Thoracic Surgery: Yes (RT CAROTID ENDARECTOMY 2010) Tonsillectomy: Yes Other Surgery: Yes Social History Alcohol Use: No Tobacco Use: No Substance Use: No Allergies-Medications (Allergen,Severity, Reaction): Coded Allergies: adhesive (Verified Allergy, Severe, PAPER TAPE- ITCHING, 08/05/17) codeine (Verified Allergy, Severe, Itching, 08/05/17) oxycodone (Verified Allergy, Severe, 08/05/17) shrimp (Verified Allergy, Severe, Rash, 08/05/17) atorvastatin (Verified Allergy, Unknown, 08/05/17) PT DENIES THIS ALLERGY Reported Meds & Prescriptions Reported Meds & Active Scripts Active Reported Keppra (Levetiracetam) 500 Mg Tab 500 Mg PO BID D-Mannose Powder (Bulk) 99 % Pow Cetirizine (Cetirizine HCl) 10 Mg Chew 10 Mg CHEW DAILY Preservision Areds (Multiple Vitamins W/ Minerals) 1 Tab 1 Tab PO DAILY Levothyroxine (Levothyroxine Sodium) 100 Mcg Tab 100 Mcg PO DAILY Duloxetine DR (Duloxetine HCl) 30 Mg Capdr 30 Mg PO HS Sebastian-3 Fish Oil/Vitamin (Fish Oil-Cholecalciferol) 1,000-1,000 Mg Cap 1 Cap PO DAILY Lasix (Furosemide) 20 Mg Tab 20 Mg PO DAILY Myrbetriq (Mirabegron) 50 Mg Tab 50 Mg PO DAILY Ubiquinol 100 Mg Cap 1 Cap PO DAILY Ramipril 1.25 Mg Cap 1.25 Mg PO DAILY Nexium (Esomeprazole DR) 20 Mg Capdr 20 Mg PO DAILY Fluticasone Nasal [place] 50 Mcg/Act Naspr 50 Mcg EACH NARE BID PRN 50 mcg/spray Spironolactone 25 Mg Tab 12.5 Mg PO BID Coreg (Carvedilol) 3.125 Mg Tab 3.125 Mg PO BID Xarelto (Rivaroxaban) 20 Mg Tab 20 Mg PO DAILY Review of Systems Except as stated in HPI: all other systems reviewed are Neg Musculoskeletal: Positive: Arthralgias Physical Exam Narrative GENERAL: Awake and alert and in no acute distress. SKIN: Warm and dry. HEAD: Normocephalic/atraumatic. EYES: Pupils are equal. Extraocular movements are intact. NECK: Normal range of motion. CARDIOVASCULAR: Regular rate and rhythm. RESPIRATORY: Nonlabored respirations. MUSCULOSKELETAL: Tenderness just proximal to the right wrist. Minimal swelling. No gross deformity. Distally neurovascularly intact. NEUROLOGICAL: Nonfocal. PSYCHIATRIC: Appropriate mood and affect. Data Data Last Documented VS Vital Signs Date Time Temp Pulse Resp B/P (MAP) Pulse Ox O2 Delivery O2 Flow Rate FiO2 08/05/17 22:15 97.9 91 16 112/77 (89) 96 Room Air Orders Orders Acetaminophen (Tylenol) (08/05/17 22:45) Ct Brain W/O Iv Contrast(Rout) (08/05/17 22:32) Wrist, Complete (Hdg2qem) (08/05/17 22:32) [employer] Request For Service (08/05/17 22:59) Sling Cradle Arm (08/05/17 ) Fiberglass Sugartong Sp Ad Arm (08/05/17 ) MDM Medical Decision Making Medical Screen Exam Complete: Yes Emergency Medical Condition: Yes Differential Diagnosis My differential diagnosis of head trauma includes but is not limited to scalp contusion, concussion, intracerebral hemorrhage. Differential diagnosis of extremity trauma includes but is not limited to fracture, sprain or strain, dislocation, contusion Narrative Course This patient presents mainly for the evaluation of a right wrist injury. She also fell and hit her head today. She is on Xarelto. She does not have any signs or symptoms of a head injury. Last Impressions Wrist X-Ray [id number]/05/[id number] Signed Impressions: Service Date/Time: Saturday, August 05, 2017 22:43 - CONCLUSION: 1. Acute fracture involving the distal shaft of the right ulna. 2. Diffuse osteopenia. 3. Moderate osteoarthritis is noted involving the first carpometacarpal joint. Enrique Navarro MD Head CT [id number]/05/[id number] Signed Impressions: Service Date/Time: Saturday, August 05, 2017 22:40 - CONCLUSION: 1. Stable cerebral atrophy and mild to moderate periventricular/subcortical white matter small vessel ischemic changes bilaterally. 2. No acute infarct, acute hemorrhage, mass effect or extra-axial fluid collections. Enrique Navarro MD Her arm has been splinted by the [employer]. Diagnosis Primary Impression: Right distal ulnar fracture Qualified Codes: S52.601A - Unspecified fracture of lower end of right ulna, initial encounter for closed fracture Referrals: Amandeep Rosales MD 1 week Patient Instructions: Arm Fracture in Adults (ED), General Instructions, RICE Therapy (ED) Additional Instructions: Tylenol as needed for pain Med/Other Pt SpecificInfo: Prescription(s) given Disposition: 01 DISCHARGE HOME Condition: Stable An Gonzalez MD Aug 05, 2017 23:22
== END 2017-08-06 00:03 | disposition home or self-care (01) ==
LOC: NEPC 22:13
DX: S52.601A Unspecified fracture of lower end of right ulna, initial encounter for closed fracture (principal); G71.0 Muscular dystrophy; M19.031 Primary osteoarthritis, right wrist; E78.00 Pure hypercholesterolemia, unspecified; K21.9 Gastro-esophageal reflux disease without esophagitis; I10 Essential (primary) hypertension; W18.00XA Striking against unspecified object with subsequent fall, initial encounter; Z86.718 Personal history of other venous thrombosis and embolism; Z79.899 Other long term (current) drug therapy
CPT/HCPCS: 29125; 70450; 73110

== ENCOUNTER 2018-03-03 22:19 | Observation (INO) ==
--- NOTE | 2018-03-03 23:04 | ED ---
HPI General Chief Complaint: Syncope Stated Complaint: Isra Blood Sugar/Evac Time Seen by Provider: 03/03/18 22:26 Source: patient History of Present Illness HPI narrative: 77yo F with PMH of muscular dystrophy with AICD here with c/o syncope. Pt was feeling lightheaded and thinks she sat down but unsure and woke up in the ambulance. Said when she woke up she had chest tightness and nausea. Said her chest tightness resolved by the time she arrived. Pt's lozenge maker helper is Dr. Merritt. Said she has had syncope episode from low blood pressure before. Denies any fever, sob, n/v, abdominal pain, new focal weakness or numbness. Related Data Home Medications Medication Instructions Recorded Confirmed carvedilol [Coreg] 3.125 mg PO BID 03/04/18 03/04/18 duloxetine [Cymbalta] 60 mg PO DAILY 03/04/18 03/04/18 fexofenadine 180 mg PO DAILY 03/04/18 03/04/18 furosemide 20 mg PO DAILY 03/04/18 03/04/18 levothyroxine 50 mcg PO DAILY 03/04/18 03/04/18 mirabegron [Myrbetriq] 50 mg PO DAILY 03/04/18 03/04/18 ramipril [Altace] 1.25 PO AC LUNCH 03/04/18 03/04/18 rivaroxaban [Xarelto] 20 mg PO DAILY 03/04/18 03/04/18 spironolactone 12.5 mg PO BID 03/04/18 03/04/18 zolpidem [Ambien] HS PRN 03/04/18 03/04/18 Previous Rx's Medication Instructions Recorded levetiracetam [Keppra] 1,000 mg PO BID tab 03/05/18 Allergies Allergy/AdvReac Type Severity Reaction Status Date / Time adhesive Allergy Severe PAPER Verified 08/05/17 22:31 TAPE- ITCHING codeine Allergy Severe Itching Verified 08/05/17 22:31 oxycodone Allergy Severe Verified 08/05/17 22:31 shrimp Allergy Severe Rash Verified 08/05/17 22:31 atorvastatin Allergy Unknown Verified 08/05/17 22:31 [facility] Medical History Medical History HTN (hypertension) (Acute) Deep vein thrombosis (DVT) of left lower extremity (Chronic) Muscular dystrophy (Chronic) H/O: hysterectomy (Acute) Macular degeneration (Acute) Pacemaker (Acute) Sleep apnea (Acute) Surgical History Surgical History AICD (automatic cardioverter/defibrillator) present (Acute) Hx of cataract surgery (Acute) Family History Family History Father Family history of cancer Mother Muscular dystrophy Social History Social History Substance History: No History of Abuse Second Hand Smoke Exposure: No Smoking Status: Never smoker How Often Do You Have a Drink Containing Alcohol: Never Recent Travel in [facility] within the Last 8 Weeks: No Recent Out of Country Travel within the Last 8 Weeks: No Immunization History Tetanus Immunization: Unsure Hx Influenza Vaccine This Season: No Course Initial Documented Vital Signs Temperature 98.1 F 03/03/18 22:31 Pulse Rate 82 03/03/18 22:31 Respiratory Rate 16 03/03/18 22:31 Blood Pressure 109/54 L 03/03/18 22:31 Pulse Oximetry 98 03/03/18 22:31 Last Documented Vital Signs Temperature 95.7 F L 03/05/18 15:33 Pulse Rate 85 03/05/18 15:33 Respiratory Rate 18 03/05/18 15:33 Blood Pressure 148/66 H 03/05/18 15:33 Pulse Oximetry 97 03/05/18 15:33 Medical Decision Making MDM Narrative Medical decision making narrative: 77yo F with syncope. She also has chest pressure when she woke up that went away. Labs reviewed, no leukocytosis. H/ H normal. BUN/creatinine elevated at 58/1.19. This is almost double her previous. Troponin negative at 0.05. CXR negative. [employer] was called to interrogate AICD and it is negative for any events. Pt given NS IVF. Will admit pt for serial EKG and cardiac enzymes. Pt needs a room with bathroom. Differential Diagnosis Differential Diagnosis: Vtach vs. arrhythmia vs. ACS vs. dehydration vs. SOFIA Lab Data Result diagrams: 03/05/18 04:25 03/05/18 16:35 Lab Results 03/03/18 03/03/18 03/03/18 Range/Units 23:05 23:05 23:05 WBC 6.0 (4.0-11.0) th/mm3 RBC 3.81 L (4.00-5.30) mil/mm3 Hgb 12.2 (11.6-15.3) gm/dL Hct 36.4 (35.0-46.0) % MCV 95.5 (80.0-100.0) fL MCH 32.0 (27.0-34.0) pg MCHC 33.5 (32.0-36.0) % RDW 13.7 (11.6-17.2) % Plt Count 177 (150-450) th/mm3 MPV 8.5 (7.0-11.0) fL Neut % (Auto) 68.9 (16.0-70.0) % Lymph % (Auto) 15.9 (9.0-44.0) % [place] % (Auto) 11.5 H (0.0-8.0) % Eos % (Auto) 3.2 (0.0-4.0) % Baso % (Auto) 0.5 (0.0-2.0) % Neut # (Auto) 4.2 (1.8-7.7) th/mm3 Lymph # (Auto) 1.0 (1.0-4.8) th/mm3 [place] # (Auto) 0.7 (0.0-0.9) th/mm3 Eos # (Auto) 0.2 (0.0-0.4) th/mm3 Baso # (Auto) 0.0 (0.0-0.2) th/mm3 WBC Differential . Differential Comment Auto diff final Hematology Comments PT 13.0 H (9.8-11.6) sec INR 1.3 Ratio APTT 28.4 (24.3-30.1) sec Sodium 144 (136-145) meq/L Potassium 4.9 (3.5-5.1) meq/L Chloride 112 H (98-107) meq/L Carbon Dioxide 22.8 (21.0-32.0) meq/L Anion Gap 9 (5-15) meq/L BUN 58 H (7-18) mg/dL Creatinine 1.19 H (0.50-1.00) mg/dL Estimated GFR 44 L (>89) mL/min Random Glucose 128 H (74-106) mg/dL Calcium 8.7 (8.5-10.1) mg/dL Total Creatine Kinase (26-192) U/L Troponin I 0.05 (0.02-0.05) ng/mL 03/04/18 03/04/18 03/05/18 Range/Units 08:00 11:11 04:25 WBC 4.5 (4.0-11.0) th/mm3 RBC 3.33 L (4.00-5.30) mil/mm3 Hgb 10.4 L (11.6-15.3) gm/dL Hct 31.4 L (35.0-46.0) % MCV 94.3 (80.0-100.0) fL MCH 31.2 (27.0-34.0) pg MCHC 33.1 (32.0-36.0) % RDW 13.5 (11.6-17.2) % Plt Count 151 (150-450) th/mm3 MPV 8.4 (7.0-11.0) fL Neut % (Auto) 36.6 (16.0-70.0) % Lymph % (Auto) 37.3 (9.0-44.0) % [place] % (Auto) 18.3 H (0.0-8.0) % Eos % (Auto) 6.9 H (0.0-4.0) % Baso % (Auto) 0.9 (0.0-2.0) % Neut # (Auto) 1.6 L (1.8-7.7) th/mm3 Lymph # (Auto) 1.7 (1.0-4.8) th/mm3 [place] # (Auto) 0.8 (0.0-0.9) th/mm3 Eos # (Auto) 0.3 (0.0-0.4) th/mm3 Baso # (Auto) 0.0 (0.0-0.2) th/mm3 WBC Differential . Differential Comment Auto diff final Hematology Comments PT (9.8-11.6) sec INR Ratio APTT (24.3-30.1) sec Sodium (136-145) meq/L Potassium (3.5-5.1) meq/L Chloride (98-107) meq/L Carbon Dioxide (21.0-32.0) meq/L Anion Gap (5-15) meq/L BUN (7-18) mg/dL Creatinine (0.50-1.00) mg/dL Estimated GFR (>89) mL/min Random Glucose (74-106) mg/dL Calcium (8.5-10.1) mg/dL Total Creatine Kinase 57 58 (26-192) U/L Troponin I 0.06 H 0.07 H (0.02-0.05) ng/mL 03/05/18 03/05/18 Range/Units 04:25 16:35 WBC (4.0-11.0) th/mm3 RBC (4.00-5.30) mil/mm3 Hgb (11.6-15.3) gm/dL Hct (35.0-46.0) % MCV (80.0-100.0) fL MCH (27.0-34.0) pg MCHC (32.0-36.0) % RDW (11.6-17.2) % Plt Count (150-450) th/mm3 MPV (7.0-11.0) fL Neut % (Auto) (16.0-70.0) % Lymph % (Auto) (9.0-44.0) % [place] % (Auto) (0.0-8.0) % Eos % (Auto) (0.0-4.0) % Baso % (Auto) (0.0-2.0) % Neut # (Auto) (1.8-7.7) th/mm3 Lymph # (Auto) (1.0-4.8) th/mm3 [place] # (Auto) (0.0-0.9) th/mm3 Eos # (Auto) (0.0-0.4) th/mm3 Baso # (Auto) (0.0-0.2) th/mm3 WBC Differential Differential Comment Hematology Comments PT (9.8-11.6) sec INR Ratio APTT (24.3-30.1) sec Sodium 145 144 (136-145) meq/L Potassium 5.6 H 4.8 D (3.5-5.1) meq/L Chloride 114 H 111 H (98-107) meq/L Carbon Dioxide 20.9 L 24.7 (21.0-32.0) meq/L Anion Gap 10 8 (5-15) meq/L BUN 43 H 39 H (7-18) mg/dL Creatinine 0.96 1.01 H (0.50-1.00) mg/dL Estimated GFR 56 L 53 L (>89) mL/min Random Glucose 93 106 (74-106) mg/dL Calcium 8.8 9.4 (8.5-10.1) mg/dL Total Creatine Kinase (26-192) U/L Troponin I (0.02-0.05) ng/mL Imaging Data Radiologist's impression: ITS Impressions Chest X-Ray 03/03/18 22:44 CONCLUSION: No acute cardiopulmonary disease identified. Carotid Doppler Study 03/04/18 00:00 CONCLUSION: 50-60% stenosis left internal carotid artery. No hemodynamic significant stenosis right carotid artery. Head CT 03/04/18 00:00 CONCLUSION: 1. Nonspecific white matter changes. 2. No acute intracranial abnormality. ECG Data EKG Prior to Arrival: No Attestation: I personally reviewed and interpreted this ECG as follows: Prior ECG tracings: not available for review Interpretation: Paced rhythm. LBBB pattern. 1mm ST elevation in V2, V3. TWI I , aVL. Unable to review prior EKG. Discharge Plan Discharge Disposition Patient Disposition: 30 Still Patient Discharge Condition Condition: Good Discharge Order Discharge Orders: Discharge Order (Routine); Ordered 03/05/18 Ordered By: Maggi Azevedo Physicians Team ED Provider: Blaire Fortune Primary Care Provider: Anand Evans Attending Provider: Gosia Becker Other Providers: Oniel Osborne Glenn Discharge Interventions Interventions: ED Discharge Assessment Last Done: 03/04/18 07:01 Vital Signs Last Done: 03/04/18 00:15 Status ED Status: Left Department Discharge Information Discharge Date/Time: 03/04/18 07:02
[2018-03-03 23:27] LABS: Baso % (Auto) 0.5 % (0.0-2.0); Eos # (Auto) 0.2 th/mm3 (0.0-0.4); Eos % (Auto) 3.2 % (0.0-4.0); Hematocrit 36.4 % (35.0-46.0); Hemoglobin 12.2 gm/dL (11.6-15.3); Lymph % (Auto) 15.9 % (9.0-44.0); Mean Corpuscular HGB Conc 33.5 % (32.0-36.0); Mean Corpuscular Volume 95.5 fL (80.0-100.0); Mean Platelet Volume 8.5 fL (7.0-11.0); Mono # (Auto) 0.7 th/mm3 (0.0-0.9); Mono % (Auto) 11.5 % (0.0-8.0); Neut # (Auto) 4.2 th/mm3 (1.8-7.7); Neut % (Auto) 68.9 % (16.0-70.0); Platelet Count 177 th/mm3 (150-450); Red Blood Count 3.81 mil/mm3 (4.00-5.30); Red Cell Distribution Width 13.7 % (11.6-17.2)
--- NOTE | 2018-03-03 23:27 | XR ---
EXAM DATE: 03/03/2018 11:01 PM EDT AGE/SEX: 77 years / Female INDICATIONS: Chest pain. CLINICAL DATA: This is the patient's subsequent encounter. Patient reports that signs and symptoms h ave been present for 1 day and indicates a pain score of 5/10. MEDICAL/SURGICAL HISTORY: None. Pacemaker. COMPARISON: [facility] – [place]ST SINGLE AP, 12/20/2016. . FINDINGS: PA and lateral views of the chest. AICD in place. Surgical clips in the left axilla. Lung volumes are low. Lungs are clear. No evidence of pleural effusion or pneumothorax. CONCLUSION: No acute cardiopulmonary disease identified. Electronically signed by: Phill Cesar MD 03/03/2018 11:26 PM EDT
[2018-03-03 23:36] LABS: Calcium 8.7 mg/dL (8.5-10.1); Carbon Dioxide 22.8 meq/L (21.0-32.0); Potassium 4.9 meq/L (3.5-5.1)
[2018-03-03 23:39] LABS: Activated Partial Thrombo Time 28.4 sec (24.3-30.1); INR 1.3 Ratio
[2018-03-03 23:40] LABS: Troponin I 0.05 ng/mL (0.02-0.05)
[2018-03-03] MEDS ORDERED: Sod Chloride 0.9% Inj 1,000 ML IV.SIG ONE (23:57)
[2018-03-04] MEDS ORDERED: Acetaminophen 500 MG Tablet PO ONE (03:45)
[2018-03-04] MEDS: Sod Chloride 0.9% Inj 1,000 ML IV.CONT SCH ×3 (05:09→22:51)
[2018-03-04] MEDS: levETIRAcetam 500 MG Tablet PO SCH ×3 (07:07→18:56)
[2018-03-04 09:39] LABS: Troponin I 0.06 ng/mL (0.02-0.05)
[2018-03-04] MEDS: Duloxetine 60 MG DR Capsule PO SCH (10:09)
--- NOTE | 2018-03-04 10:24 | ECG ---
Date Performed: 03/03/2018 Time Performed: 22:30:03 PTAGE: 77 years EKG: ELECTRONIC VENTRICULAR PACEMAKER ABNORMAL RHYTHM ECG PREVIOUS TRACING : 12/20/2016 21.57 Compared to previous tracing, ventricular pacing is now jonas dent. DOCTOR: Boo Velazquez Interpretating Date/Time 03/04/2018 10:23:49
--- NOTE | 2018-03-04 10:40 | US ---
EXAM DATE: 03/04/2018 10:32 AM EDT AGE/SEX: 77 years / Female INDICATIONS: Syncope. CLINICAL DATA: This is the patient's initial encounter. Patient reports that signs and symptoms have been present for 1 day and indicates a pain score of 0/10. MEDICAL/SURGICAL HISTORY: . Hypertension. Atrial fibrillation. Left breast cancer 2001. Skin cancer. . Right endarterectomy. Left mastectomy 2001. Pacemaker. Cholecystectomy. Hysterectomy. Appendectomy. COMPAR[place]: [facility] [place] ARTER[place], [place]/23/[place]. . VELOCITY PARAMETERS: ICA/CCA Ratio: Right 1.2 , Left 1.7 ICA: Right 94 cm/sec, Left 126 cm/sec CCA: Right 79 cm/sec, Left 75 cm/sec ECA: Right 121 cm/sec, Left 79 cm/sec Vertebral: Right 74 cm/sec antegrade, Left 72 cm/sec antegrade FINDINGS: Right Carotid: No significant plaque is visualized.The waveforms are within normal limits. Left Carotid: Moderate arteriosclerotic plaque is visualized. The waveforms are within normal limits . Other: None. CONCLUSION: 50-60% stenosis left internal carotid artery. No hemodynamic significant stenosis right carotid arter y. Electronically signed by: Aki Jacobsen MD 03/04/2018 10:38 AM EDT
--- NOTE | 2018-03-04 11:37 | P.HP ---
History of Present Illness Service: [facility] Primary Care Physician: Anand Evans Chief Complaint: Syncope History of Present Illness: Patient is a 77-year-old female with known history of muscular dystrophy with PPM and AICD, macular degeneration, left leg DVT on Xarelto who initially came into the hospital for syncope. Patient states that last night she was out with her family she usually walks with a walker at home and he wanted to go to get an ice cream. States that she was walking she told her daughter that she is feeling dizzy and needs to sit down. She sat down at her walker and she woke up in the ambulance. Does not recall in between events. Patient states that she is recently diagnosed with seizure and has been taking Keppra and followed by neurologist Dr. Love in [facility]. States that this is not her first syncopal episode, she states that about 10 months ago she also had another episode like this. Complains of slight headache, states she just took Tylenol for it. Denies pain and discomfort. Denies SOB/ dyspnea. Denies chest pain, palpitations, dizziness. Denies fevers, chills, n/v/d. Denies dysuria. Inpatient Certification: I certify that the inpatient services were ordered in accordance with Medicare regulations governing the order. This includes certification that hospital inpatient services are reasonable and necessary and in the case of services not specified as inpatient-only under 42 CFR 419.22(n), that they are appropriately provided as inpatient services in accordance to with the 2-midnight benchmark under 43 CFR 412.3(e) Review of Systems All other systems reviewed negative except as stated in HPI [facility] - History History Provided By: Patient, Family Member - Medical History Medical History: Medical History (Last Updated 03/04/18 @ 14:17 by MAYA Garcia) HTN (hypertension) (Acute) Deep vein thrombosis (DVT) of left lower extremity (Acute) Muscular dystrophy (Acute) H/O: hysterectomy Macular degeneration Pacemaker Sleep apnea - Surgical History Surgical History: Surgical History (Last Updated 03/04/18 @ 14:17 by MAYA Garcia) AICD (automatic cardioverter/defibrillator) present Hx of cataract surgery - Family History Family History: Family History (Last Updated 03/04/18 @ 14:18 by MAYA Garcia) Father Family history of cancer Mother Muscular dystrophy - Tobacco History Second Hand Smoke Exposure: No Smoking Status: Never smoker - Alcohol History How Often Do You Have a Drink Containing Alcohol: Never - Substance Use History Substance History: No History of Abuse - Travel History Recent Travel in the [place] Within the Last 8 Weeks: No Recent Travel Out of the Country Within the Last 8 Weeks: No - Immunization History Tetanus Immunization: Unsure Hx Influenza Vaccine This Season: No Medications and Allergies Active Medications: Active Medications Acetaminophen (Tylenol) 650 mg PO Q4H PRN PRN Reason: Pain 1-10, [place], Temp >100.1 Aspirin (Ecotrin) 325 mg PO DAILY [facility] Last Admin: 03/04/18 10:08 Dose: 325 mg Duloxetine HCl (Cymbalta) 60 mg PO DAILY [facility] Last Admin: 03/04/18 10:09 Dose: 60 mg Sodium Chloride (Ns Inj) 1,000 mls @ 100 mls/hr IV.CONT .Q10H [facility] Last Admin: 03/04/18 05:09 Dose: 100 mls/hr Levetiracetam (Keppra) 250 mg PO Q12H [facility] Last Admin: 03/04/18 07:07 Dose: 250 mg Nitroglycerin (Nitro-Bid 2% Oint) 1 inch TOPICAL Q6HR [facility] Last Admin: 03/04/18 07:08 Dose: 1 inch Ondansetron HCl (Zofran Inj) 4 mg IV.PUSH Q6H PRN PRN Reason: NAUSEA OR VOMITING Sodium Chloride (Ns Inj) 2 ml IV.FLUSH BID [facility] Last Admin: 03/04/18 10:09 Dose: 2 ml Sodium Chloride (Ns Inj) 2 ml IV.FLUSH UNSCH PRN PRN Reason: FLUSH AFTER USING IV ACCESS Allergies Allergy/AdvReac Type Severity Reaction Status Date / Time adhesive Allergy Severe PAPER Verified 08/05/17 22:31 TAPE- ITCHING codeine Allergy Severe Itching Verified 08/05/17 22:31 oxycodone Allergy Severe Verified 08/05/17 22:31 shrimp Allergy Severe Rash Verified 08/05/17 22:31 atorvastatin Allergy Unknown Verified 08/05/17 22:31 Home Medications Medication Instructions Recorded Confirmed Type duloxetine [Cymbalta] 60 mg PO DAILY 03/04/18 03/04/18 History levetiracetam [Keppra] 250 mg PO Q12H 03/04/18 03/04/18 History Exam Vital signs: Vital Signs 03/03/18 22:31 03/03/18 22:35 03/03/18 22:48 Temperature 98.1 F Pulse Rate 82 83 Respiratory Rate 16 16 Blood Pressure 109/54 L 105/61 Pulse Oximetry 98 97 98 03/04/18 00:15 03/04/18 04:43 03/04/18 08:00 Temperature 97.9 F 97.8 F Pulse Rate 81 78 71 Respiratory Rate 16 15 16 Blood Pressure 128/80 127/59 L 114/50 L Pulse Oximetry 95 97 100 Intake & Output 03/03/18 03/04/18 03/04/18 18:59 06:59 18:59 Intake Total 1000 / 1000 Balance 1000 / 1000 Weight 72 kg Intake: IV 1000 / 1000 NS Inj 1,000 ML @ Wide Open IV. 1000 / 1000 SIG BOLUS ONE Rx#:[id number] Other: Weight On Admission 72 kg Narrative: GENERAL: This is a well-nourished, well-developed patient, in no apparent distress. SKIN: Warm and dry. HEENT: Normocephalic. Pupils equal round and reactive. Nose without bleeding. Airway patent. NECK: Trachea midline. CARDIOVASCULAR: Regular rate and rhythm without murmurs, gallops, or rubs. RESPIRATORY: Clear to auscultation. Breath sounds equal bilaterally. No wheezes , rales, or rhonchi. GASTROINTESTINAL: Abdomen soft, non-tender, nondistended. Bowel Sounds normoactive x4. MUSCULOSKELETAL: Extremities without clubbing, cyanosis, or edema. NEUROLOGICAL: Awake and alert. Oriented to time, place, person. Moves all extremities, BLE weakness. Normal speech. Results - Labs CBC & Chem 7: 03/03/18 23:05 03/03/18 23:05 Labs: Laboratory Results - last 24 hr 03/03/18 03/03/18 03/03/18 23:05 23:05 23:05 WBC 6.0 RBC 3.81 L Hgb 12.2 Hct 36.4 MCV 95.5 MCH 32.0 MCHC 33.5 RDW 13.7 Plt Count 177 MPV 8.5 Neut % (Auto) 68.9 Lymph % (Auto) 15.9 [place] % (Auto) 11.5 H Eos % (Auto) 3.2 Baso % (Auto) 0.5 Neut # (Auto) 4.2 Lymph # (Auto) 1.0 [place] # (Auto) 0.7 Eos # (Auto) 0.2 Baso # (Auto) 0.0 WBC Differential . Differential Comment Auto diff final PT 13.0 H INR 1.3 APTT 28.4 Sodium 144 Potassium 4.9 Chloride 112 H Carbon Dioxide 22.8 Anion Gap 9 BUN 58 H Creatinine 1.19 H Estimated GFR 44 L Random Glucose 128 H Calcium 8.7 Total Creatine Kinase Troponin I 0.05 03/04/18 08:00 WBC RBC Hgb Hct MCV MCH MCHC RDW Plt Count MPV Neut % (Auto) Lymph % (Auto) [place] % (Auto) Eos % (Auto) Baso % (Auto) Neut # (Auto) Lymph # (Auto) [place] # (Auto) Eos # (Auto) Baso # (Auto) WBC Differential Differential Comment PT INR APTT Sodium Potassium Chloride Carbon Dioxide Anion Gap BUN Creatinine Estimated GFR Random Glucose Calcium Total Creatine Kinase 57 Troponin I 0.06 H - Imaging Impressions Chest X-Ray 03/03/18 22:44 CONCLUSION: No acute cardiopulmonary disease identified. Carotid Doppler Study 03/04/18 00:00 CONCLUSION: 50-60% stenosis left internal carotid artery. No hemodynamic significant stenosis right carotid artery. Caprini VTE Risk Assessment Caprini VTE Risk Assessment: Moderate/High Risk (score >= 2) Caprini Risk Assessment Model: Point Value = 1 Point Value = 2 Point Value = 3 Point Value = 5 Age 41-60 Minor surgery BMI > 25 kg/m2 Swollen legs Varicose veins or History of unexplained or recurrent spontaneous Oral contraceptives or hormone replacement Sepsis (< 1 month) Serious lung disease, including pneumonia (< 1 month) Abnormal pulmonary function Acute myocardial infarction Congestive heart failure (< 1 month) History of inflammatory bowel disease Medical patient at bed rest Age 61-74 Arthroscopic surgery Major open surgery (> 45 min) Laparoscopic surgery (> 45 min) Malignancy Confined to bed (> 72 hours) Immobilizing plaster cast Central venous access Age >= 75 History of VTE Family history of VTE Factor V Leiden Prothrombin [id number] Lupus anticoagulant Anticardiolipin antibodies Elevated serum homocysteine Heparin-induced thrombocytopenia Other congenital or acquired thrombophilia Stroke (< 1 month) Elective arthroplasty Hip, pelvis, or leg fracture Acute spinal cord injury (< 1 month) Prophylaxis Regimen: Total Risk Factor Score Risk Level Prophylaxis Regimen 0-1 Low Early ambulation 2 Moderate Order ONE of the following: *Sequential Compression Device (SCD) *Heparin 5000 units SQ BID 3-4 Higher Order ONE of the following medications: *Heparin 5000 units SQ TID *Enoxaparin/Lovenox 40 mg SQ daily (WT < 150 kg, CrCl > 30 mL/min) *Enoxaparin/Lovenox 30 mg SQ daily (WT < 150 kg, CrCl > 10-29 mL/min) *Enoxaparin/Lovenox 30 mg SQ BID (WT < 150 kg, CrCl > 30 mL/min) AND/OR *Sequential Compression Device (SCD) 5 or more Highest Order ONE of the following medications: *Heparin 5000 units SQ TID (Preferred with Epidurals) *Enoxaparin/Lovenox 40 mg SQ daily (WT < 150 kg, CrCl > 30 mL/min) *Enoxaparin/Lovenox 30 mg SQ daily (WT < 150 kg, CrCl > 10-29 mL/min) *Enoxaparin/Lovenox 30 mg SQ BID (WT < 150 kg, CrCl > 30 mL/min) AND *Sequential Compression Device (SCD) Assessment and Plan - Plan Patient is a 77-year-old female with known history of muscular dystrophy with PPM and AICD, macular degeneration, left leg DVT on Xarelto who initially came into the hospital for syncope. Syncope versus seizure Hx Seizure History of muscular dystrophy -On Keppra 250mg BID, follows neuro at [facility], Dr. Love -Check carotids US -Check CT head -Check EEG, echocardiogram -Labs reviewed elevated creatinine, elevated BUN -Consult neurology appreciate recommendations Syncope possibly secondary to cardiac event Elevated troponins -Initial troponin was negative, second troponin slightly elevated. -Will consult cardiology. Follows with Dr. Manzo -Patient has AICD, PPM secondary to muscular dystrophy Acute Kidney Injury -REGIONAL GUIDE 1.19 -IVF for hydration -Repeat BMP jose Left leg DVT -Continue home meds Xarelto Sleep apnea -O2 for now, uses CPAP at home Muscular dystrophy -PT eval and treat DVT problem Xarelto Code Status: Full Code Discussed Condition With: Patient, nursing, Dr. Becker Discharge Planning: Plan to DC home when clinically improved. Diagnostic studies in process.
[2018-03-04 12:00] LABS: Troponin I 0.07 ng/mL (0.02-0.05)
[2018-03-04] MEDS: Acetaminophen 325 MG Tablet PO PRN ×3 (13:04→23:01)
--- NOTE | 2018-03-04 13:25 | CT ---
EXAM DATE: 03/04/2018 1:21 PM EDT AGE/SEX: 77 years / Female INDICATIONS: Headache, weakness. CLINICAL DATA: This is the patient's initial encounter. Patient reports that signs and symptoms have been present for 1 day and indicates a pain score of 8/10. MEDICAL/SURGICAL HISTORY: . Muscular dystrophy. None. RADIATION DOSE: 35.89 CTDI (mGy) COMPARISON: [facility] [place]/O [place], 08/05/2017. . TECHNIQUE: CT of the head without contrast. Using automated exposure control and adjustment of the mA and/or kV according to patient size, radiation dose was kept as low as reasonably achievable to ob tain optimal diagnostic quality images. DICOM format image data is available electronically for revi ew and comparison. FINDINGS: Cerebrum: Areas of low-density in the white matter. The ventricles are normal for age. No evidence of midline shift, mass lesion, hemorrhage or acute infarction. No extraaxial fluid collections are s een. Posterior Fossa: The cerebellum and brainstem are intact. The 4th ventricle is midline. The cerebe llopontine angle is unremarkable. Extracranial: The visualized portion of the orbits is intact. Skull: The calvaria is intact. No evidence of skull fracture. CONCLUSION: 1. Nonspecific white matter changes. 2. No acute intracranial abnormality. Electronically signed by: Aki Jacobsen MD 03/04/2018 1:24 PM EDT
--- NOTE | 2018-03-04 15:37 | ECG ---
Date Performed: 03/04/2018 Time Performed: 11:33:17 PTAGE: 77 years EKG: ELECTRONIC VENTRICULAR PACEMAKER ABNORMAL RHYTHM ECG INTERPRETATION BASED ON A DEFAULT AGE OF 90 YEARS NO PREVIOUS TRACING DOCTOR: Boo Velazquez Interpretating Date/Time 03/04/2018 15:34:35
--- NOTE | 2018-03-04 15:52 | MB ---
cc: Zoë Bethea MD DATE: 03/04/2018 HISTORY OF PRESENT ILLNESS: This is a 77-year-old white female, a patient of Dr. Araujo, with a history of muscular dystrophy and Medtronic ICD placement. She presented to us after an episode of syncope. She was initially feeling lightheaded, sat down and subsequently woke up in the ambulance. She had chest tightness and nausea when she woke up. She has not had any recurrent chest pain. She denies any shortness of breath or recent peripheral edema. She has had previous episodes of syncope. PAST MEDICAL HISTORY: Positive for muscular dystrophy, Medtronic ICD placement, macular degeneration, left leg deep venous thrombosis on Xarelto, history of hysterectomy, and sleep apnea. MEDICATIONS: Include: 1. Aspirin. 2. Cymbalta. 3. Keppra. ALLERGIES: 1. ADHESIVE. 2. CODEINE. 3. OXYCODONE. 4. SHRIMP. 5. ATORVASTATIN. SOCIAL HISTORY: The patient does not smoke. She does not drink alcohol. FAMILY HISTORY: Negative for coronary artery disease. REVIEW OF SYSTEMS: Otherwise negative. PHYSICAL EXAMINATION: VITAL SIGNS: Blood pressure 123/59, pulse 75 and regular. HEENT: Negative. NECK: 2+ carotid upstrokes. No bruits. LUNGS: Clear. HEART: Regular with no murmur, gallop or rub. ABDOMEN: Soft. No bruits. EXTREMITIES: With trace edema, 1+ distal pulses. NEUROLOGIC: Grossly nonfocal. DIAGNOSTIC STUDIES: EKG was reviewed and showed normal sinus rhythm and ventricular pacing. LABORATORY DATA: Hemoglobin 12.2, potassium 4.9, creatinine 1.2. Troponin 0.05, 0.06 and 0.07. DIAGNOSES: 1. Syncope. 2. History of seizures. 3. Muscular dystrophy. 4. Mild renal insufficiency. 5. Mildly abnormal troponin. 6. Status post Medtronic defibrillator placement. 7. Sleep apnea. DISPOSITION: Ms. Gacria will be monitored on telemetry. Her device was interrogated and there was no evidence of significant arrhythmias. It is unclear if she suffered a true syncope or a seizure. She is undergoing neurologic evaluation. We will follow her for cardiology over the weekend. Dr. Araujo, her primary supercharger mechanic, will take over her cardiology care on Tuesday. MD AMOR Peres , 03:16 PM , 03:51 PM ML
[2018-03-04] MEDS ORDERED: Zolpidem Tartrate 5 MG Tablet PO PRN (17:08)
[2018-03-04] MEDS: Rivaroxaban 20 MG Tablet PO SCH (18:50)
[2018-03-04] MEDS: Spironolactone 25 MG Tablet PO SCH (21:22)
[2018-03-05] MEDS ORDERED: Levothyroxine 50 MCG Tablet PO SCH (06:00)
[2018-03-05 06:27] LABS: Calcium 8.8 mg/dL (8.5-10.1); Carbon Dioxide 20.9 meq/L (21.0-32.0); Potassium 5.6 meq/L (3.5-5.1)
[2018-03-05 06:42] LABS: Baso % (Auto) 0.9 % (0.0-2.0); Eos # (Auto) 0.3 th/mm3 (0.0-0.4); Eos % (Auto) 6.9 % (0.0-4.0); Hematocrit 31.4 % (35.0-46.0); Hemoglobin 10.4 gm/dL (11.6-15.3); Lymph # (Auto) 1.7 th/mm3 (1.0-4.8); Lymph % (Auto) 37.3 % (9.0-44.0); Mean Corpuscular HGB Conc 33.1 % (32.0-36.0); Mean Corpuscular Hemoglobin 31.2 pg (27.0-34.0); Mean Corpuscular Volume 94.3 fL (80.0-100.0); Mean Platelet Volume 8.4 fL (7.0-11.0); Mono # (Auto) 0.8 th/mm3 (0.0-0.9); Mono % (Auto) 18.3 % (0.0-8.0); Neut # (Auto) 1.6 th/mm3 (1.8-7.7); Neut % (Auto) 36.6 % (16.0-70.0); Platelet Count 151 th/mm3 (150-450); Red Blood Count 3.33 mil/mm3 (4.00-5.30); Red Cell Distribution Width 13.5 % (11.6-17.2); White Blood Count 4.5 th/mm3 (4.0-11.0)
[2018-03-05] MEDS: levETIRAcetam 500 MG Tablet PO SCH (07:23)
[2018-03-05] MEDS: Acetaminophen 325 MG Tablet PO PRN ×2 (07:28→14:02)
[2018-03-05] MEDS ORDERED: Furosemide 20 MG Tablet PO SCH (09:00)
[2018-03-05] MEDS ORDERED: Tolterodine Tartrate LA 4 MG Capsule PO SCH (09:00)
[2018-03-05] MEDS ORDERED: Loratadine 10 MG Tablet PO SCH (09:00)
--- NOTE | 2018-03-05 10:02 | P.PN ---
Subjective Interval history: Follow-up visit seizure versus syncopal episode, muscular dystrophy. Patient seen and examined today. Reports she is doing well. No acute issues overnight. Denies pain and discomfort. Denies SOB/ dyspnea. Denies chest pain , palpitations, headaches, dizziness. Denies fevers, chills, n/v/d. Denies dysuria. Physical Exam Vital signs: Vital Signs 03/04/18 11:51 03/04/18 16:00 03/04/18 20:00 Temperature 98.1 F 98 F 97.8 F Pulse Rate 75 80 80 Respiratory Rate 19 16 16 Blood Pressure 123/59 L 113/56 L 137/61 Pulse Oximetry 99 97 98 03/05/18 00:00 03/05/18 04:00 03/05/18 08:00 Temperature 97.9 F 98 F 97.4 F L Pulse Rate 82 92 H 85 Respiratory Rate 15 15 16 Blood Pressure 135/65 140/64 130/60 Pulse Oximetry 97 97 100 Intake & Output 03/04/18 03/05/18 03/05/18 18:59 06:59 18:59 Intake Total 2600 / 2600 1000 / 1000 Output Total 1400 / 1400 Balance 1200 / 1200 1000 / 1000 Intake: IV 2000 / 2000 1000 / 1000 NS Inj 1,000 ML @ 100 mls/hr IV 1000 / 1000 1000 / 1000 .CONT .Q10H [facility] Rx#:[id number] NS Inj 1,000 ML @ Wide Open IV. 1000 / 1000 SIG BOLUS ONE Rx#:[id number] Oral 600 / 600 Output: Urine 1400 / 1400 Other: # Bowel Movements 0 Narrative: GENERAL: This is a well-nourished, well-developed patient, in no apparent distress. SKIN: Warm and dry. HEENT: Normocephalic. Pupils equal round. Nose without bleeding. Airway patent. NECK: Trachea midline. CARDIOVASCULAR: Regular rate and rhythm without murmurs, gallops, or rubs. RESPIRATORY: Clear to auscultation. Breath sounds equal bilaterally. No wheezes , rales, or rhonchi. GASTROINTESTINAL: Abdomen soft, non-tender, nondistended. Bowel Sounds normoactive x4. MUSCULOSKELETAL: Extremities without clubbing, cyanosis, or edema. NEUROLOGICAL: Awake and alert. Oriented to time, place, person. Moves all extremities, BLE weakness. Normal speech. Results - Labs CBC & Chem 7: 03/05/18 04:25 03/05/18 04:25 Laboratory Results - last 24 hr 03/04/18 03/05/18 03/05/18 11:11 04:25 04:25 WBC 4.5 RBC 3.33 L Hgb 10.4 L Hct 31.4 L MCV 94.3 MCH 31.2 MCHC 33.1 RDW 13.5 Plt Count 151 MPV 8.4 Neut % (Auto) 36.6 Lymph % (Auto) 37.3 [place] % (Auto) 18.3 H Eos % (Auto) 6.9 H Baso % (Auto) 0.9 Neut # (Auto) 1.6 L Lymph # (Auto) 1.7 [place] # (Auto) 0.8 Eos # (Auto) 0.3 Baso # (Auto) 0.0 WBC Differential . Differential Comment Auto diff final Hematology Comments Sodium 145 Potassium 5.6 H Chloride 114 H Carbon Dioxide 20.9 L Anion Gap 10 BUN 43 H Creatinine 0.96 Estimated GFR 56 L Random Glucose 93 Calcium 8.8 Total Creatine Kinase 58 Troponin I 0.07 H - Imaging Impressions Carotid Doppler Study 03/04/18 00:00 CONCLUSION: 50-60% stenosis left internal carotid artery. No hemodynamic significant stenosis right carotid artery. Head CT 03/04/18 00:00 CONCLUSION: 1. Nonspecific white matter changes. 2. No acute intracranial abnormality. Assessment and Plan - Plan Patient is a 77-year-old female with known history of muscular dystrophy with PPM and AICD, macular degeneration, left leg DVT on Xarelto who initially came into the hospital for syncope. Syncope versus seizure Hx Seizure History of muscular dystrophy -Follows neuro at [facility], Dr. Love -Keppra increased to 1000 mg twice daily as the dose has been verified by patient's family. Previously reported Keppra 250mg BID -Carotids US 50-60% stenosis left internal carotid artery. No hemodynamic significant stenosis right carotid artery. -CT head no acute intracranial abnormality. -EEG normal electroencephalogram -echocardiogram pending -Consult neurology appreciate recommendations Syncope possibly secondary to cardiac event Elevated troponins -Initial troponin was negative, second troponin slightly elevated. -Follows with Dr. Manzo, saw Dr. Bethea and recommended telemetry for now. -Patient has AICD, PPM secondary to muscular dystrophy. -AICD/PPM is been interrogated no evidence of significant arrhythmias. Acute Kidney Injury -TRAFFIC DIRECTOR 1.19 -IVF for hydration -Improved Hyperkalemia -Potassium 5.6 -Repeat BMP later today. Kayexalate 1 dose now. Left leg DVT -Continue home meds Xarelto Sleep apnea -O2 for now, uses CPAP at home Muscular dystrophy -PT eval and treat DVT problem Xarelto Code Status: Full Code Discussed Condition With: Patient, nurse Discharge Planning: Plan to DC home when clinically improved. Diagnostic studies in process.
[2018-03-05] MEDS: Rivaroxaban 20 MG Tablet PO SCH (10:10)
[2018-03-05] MEDS: Duloxetine 60 MG DR Capsule PO SCH (10:12)
[2018-03-05] MEDS: Spironolactone 25 MG Tablet PO SCH (10:17)
[2018-03-05] MEDS ORDERED: Sodium Polystyrene Sulfonate/Sorbitol Liq 15 GM/60 ML UDC PO ONE (11:30)
[2018-03-05] MEDS ORDERED: levETIRAcetam 500 MG Tablet PO ONE (12:00)
--- NOTE | 2018-03-05 12:40 | MG ---
cc: Oniel Osborne MD, PhD DATE OF STUDY: 03/05/2018. TEST NUMBER: [id number]. TECHNIQUE: This is a 17-channel EEG. DESCRIPTION: The background rhythm reveals a symmetrical alpha rhythm, frequency 8 Hz. Amplitude is 10-20 microvolts. During drowsiness, there is some slowing in the theta range at 6 Hz. Occasional muscle artifact is identified. There are no lateralizing features. No epileptiform discharges present. Photic stimulation was done with a normal driving response. INTERPRETATION: Normal electroencephalogram. Oniel Osborne MD, PhD LYLE/TL , 12:19 PM , 12:38 PM
--- NOTE | 2018-03-05 16:46 | P.DS ---
Date of admission: 03/04/18 02:01 Primary care physician: Anand Evans Attending physician on discharge: Gosia Becker Anticipated date of discharge: 03/05/18 Brief History from admission: Patient is a 77-year-old female with known history of muscular dystrophy with PPM and AICD, macular degeneration, left leg DVT on Xarelto who initially came into the hospital for syncope. Patient states that last night she was out with her family she usually walks with a walker at home and he wanted to go to get an ice cream. States that she was walking she told her daughter that she is feeling dizzy and needs to sit down. She sat down at her walker and she woke up in the ambulance. Does not recall in between events. Patient states that she is recently diagnosed with seizure and has been taking Keppra and followed by neurologist Dr. Love in [facility]. States that this is not her first syncopal episode, she states that about 10 months ago she also had another episode like this. Complains of slight headache, states she just took Tylenol for it. Denies pain and discomfort. Denies SOB/ dyspnea. Denies chest pain, palpitations, dizziness. Denies fevers, chills, n/v/d. Denies dysuria. DS: Diagnosis - Discharge Diagnosis (1) Episode of syncope Status: Acute (2) Seizure Status: Chronic (3) Deep vein thrombosis (DVT) of left lower extremity Status: Chronic (4) Muscular dystrophy Status: Chronic DS: Summary Hospital Course: Patient is a 77-year-old female with known history of muscular dystrophy with PPM and AICD, macular degeneration, seizure disorder, left leg DVT on Xarelto who initially came into the hospital for syncope. She follows neurology at [facility], Dr. Barnes. Patient is on Keppra 1000 mg twice a day. CT of the head with no acute intracranial abnormality. Carotid ultrasound showed 50-60% stenosis of the left internal carotid artery. No hemodynamic significant stenosis. EEG was normal. Patient was evaluated by cardiology, Dr. Bethea who has interrogated her PPM with no evidence of significant arrhythmias. Patient follows with Dr. Araujo and outpatient. She was found to have acute kidney injury coming in and was given fluids for hydration. Her creatinine improved back to her baseline. Her chronic conditions of left leg DVT was treated with continued use of Xarelto. Spoke with her daughter extensively regarding patient's condition and diagnostic studies. States that they will continue to follow with neurologist and outpatient and also with Dr. Araujo. They agreed to go home and follow-up with her specialist. Daughter states that she does not believe that this is a seizure episode for her she has had seizures before. States that the episode was passing out and usually she states that she would be dizzy and would just pass out, this has happened before about several times within the last few years. Patient is clinically improved without any complaints of dizziness, or any reported syncopal seizure episode during hospitalization patient has met maximal benefits of hospitalization. Clinically stable for discharge. - Time Spent with Patient Total time spent providing and/or coordinating discharge services: Less than 30 minutes - Quality: VTE Deep Vein Thrombosis/Pulmonary Embolism Present on Admission: No Exam Vital signs: Vital Signs 03/04/18 20:00 03/05/18 00:00 03/05/18 04:00 Temperature 97.8 F 97.9 F 98 F Pulse Rate 80 82 92 H Respiratory Rate 16 15 15 Blood Pressure 137/61 135/65 140/64 Pulse Oximetry 98 97 97 03/05/18 08:00 03/05/18 11:25 03/05/18 12:00 Temperature 97.4 F L 97.5 F L Pulse Rate 85 89 86 Respiratory Rate 16 16 Blood Pressure 130/60 130/60 Pulse Oximetry 100 100 98 03/05/18 15:33 Temperature 95.7 F L Pulse Rate 85 Respiratory Rate 18 Blood Pressure 148/66 H Pulse Oximetry 97 Intake & Output 03/04/18 03/05/18 03/05/18 18:59 06:59 18:59 Intake Total 2600 / 2600 1000 / 1000 1000 / 1000 Output Total 1400 / 1400 Balance 1200 / 1200 1000 / 1000 1000 / 1000 Intake: IV 2000 / 2000 1000 / 1000 1000 / 1000 NS Inj 1,000 ML @ 100 mls/hr IV 1000 / 1000 1000 / 1000 1000 / 1000 .CONT .Q10H [facility] Rx#:[id number] NS Inj 1,000 ML @ Wide Open IV. 1000 / 1000 SIG BOLUS ONE Rx#:[id number] Oral 600 / 600 Output: Urine 1400 / 1400 Other: # Bowel Movements 0 Narrative: GENERAL: This is a well-nourished, well-developed patient, in no apparent distress. SKIN: Warm and dry. HEENT: Normocephalic. Pupils equal round. Nose without bleeding. Airway patent. NECK: Trachea midline. CARDIOVASCULAR: Regular rate and rhythm without murmurs, gallops, or rubs. RESPIRATORY: Clear to auscultation. Breath sounds equal bilaterally. No wheezes , rales, or rhonchi. GASTROINTESTINAL: Abdomen soft, non-tender, nondistended. Bowel Sounds normoactive x4. MUSCULOSKELETAL: Extremities without clubbing, cyanosis, or edema. NEUROLOGICAL: Awake and alert. Oriented to time, place, person. Moves all extremities, BLE weakness. Normal speech. Results Procedures completed during hospitalization: None Labs on day of discharge: Labs from last 24 hours 03/05/18 03/05/18 04:25 04:25 WBC 4.5 RBC 3.33 L Hgb 10.4 L Hct 31.4 L MCV 94.3 MCH 31.2 MCHC 33.1 RDW 13.5 Plt Count 151 MPV 8.4 Neut % (Auto) 36.6 Lymph % (Auto) 37.3 [place] % (Auto) 18.3 H Eos % (Auto) 6.9 H Baso % (Auto) 0.9 Neut # (Auto) 1.6 L Lymph # (Auto) 1.7 [place] # (Auto) 0.8 Eos # (Auto) 0.3 Baso # (Auto) 0.0 WBC Differential . Differential Comment Auto diff final Hematology Comments Sodium 145 Potassium 5.6 H Chloride 114 H Carbon Dioxide 20.9 L Anion Gap 10 BUN 43 H Creatinine 0.96 Estimated GFR 56 L Random Glucose 93 Calcium 8.8 - Impressions ITS Impressions Chest X-Ray 03/03/18 22:44 CONCLUSION: No acute cardiopulmonary disease identified. Carotid Doppler Study 03/04/18 00:00 CONCLUSION: 50-60% stenosis left internal carotid artery. No hemodynamic significant stenosis right carotid artery. Head CT 03/04/18 00:00 CONCLUSION: 1. Nonspecific white matter changes. 2. No acute intracranial abnormality. Discharge Plan - Discharge Disposition Patient Disposition: 01 Discharge Home - Discharge Condition Condition: Good - Discharge Order Discharge Orders: Discharge Order (Routine); Ordered 03/05/18 Ordered By: Maggi Azevedo - Physicians Team Primary Care Provider: Anand Evans Attending Provider: Gosia Becker Other Providers: Oniel Osborne MD, PhD ; Boo Velazquez MD
[2018-03-05 17:22] LABS: Calcium 9.4 mg/dL (8.5-10.1); Carbon Dioxide 24.7 meq/L (21.0-32.0); Potassium 4.8 meq/L (3.5-5.1)
--- NOTE | 2018-03-05 17:58 | P.PNCA ---
<Joseline Alfred N - Last Filed: 03/05/18 17:40> Subjective Interval history: Pt resting comfortably in bed at this time. Pt denies any CP, pressure, palpitations, pressure or SOB. Pt states that she has had no episodes of dizziness when getting out of bed at this time. She complains of CORONA related to Nitro paste. Physical Exam Vital signs: Vital Signs 03/04/18 20:00 03/05/18 00:00 03/05/18 04:00 Temperature 97.8 F 97.9 F 98 F Pulse Rate 80 82 92 H Respiratory Rate 16 15 15 Blood Pressure 137/61 135/65 140/64 Pulse Oximetry 98 97 97 03/05/18 08:00 03/05/18 11:25 03/05/18 12:00 Temperature 97.4 F L 97.5 F L Pulse Rate 85 89 86 Respiratory Rate 16 16 Blood Pressure 130/60 130/60 Pulse Oximetry 100 100 98 03/05/18 15:33 Temperature 95.7 F L Pulse Rate 85 Respiratory Rate 18 Blood Pressure 148/66 H Pulse Oximetry 97 Intake & Output 03/04/18 03/05/18 03/05/18 18:59 06:59 18:59 Intake Total 2600 / 2600 1000 / 1000 1000 / 1000 Output Total 1400 / 1400 Balance 1200 / 1200 1000 / 1000 1000 / 1000 Intake: IV 2000 / 2000 1000 / 1000 1000 / 1000 NS Inj 1,000 ML @ 100 mls/hr IV 1000 / 1000 1000 / 1000 1000 / 1000 .CONT .Q10H [facility] Rx#:[id number] NS Inj 1,000 ML @ Wide Open IV. 1000 / 1000 SIG BOLUS ONE Rx#:[id number] Oral 600 / 600 Output: Urine 1400 / 1400 Other: # Bowel Movements 0 - Constitutional no acute distress - Routine HEENT Exam Head: Present: normocephalic Eye: Present: PERRL ENT: Present: mucous membranes moist - Routine Respiratory Exam Present: CTA bilaterally - Routine Cardiovascular Exam Present: RRR - Routine Abdominal Exam Present: soft - Routine Extremities Exam Present: full ROM, pulses intact - Routine Skin Exam Present: intact - Routine Neurological Exam Present: oriented X3 - Routine Psychiatric Exam Present: normal affect Assessment and Plan - Assessment (1) Mild renal insufficiency Code(s): N28.9 - Disorder of kidney and ureter, unspecified Status: Acute (2) Episode of syncope Code(s): R55 - Syncope and collapse Status: Acute (3) Seizure Code(s): R56.9 - Unspecified convulsions Status: Chronic (4) HTN (hypertension) Code(s): I10 - Essential (primary) hypertension Status: Acute (5) Deep vein thrombosis (DVT) of left lower extremity Code(s): I82.402 - Acute embolism and thrombosis of unspecified deep veins of left lower extremity Status: Chronic (6) Muscular dystrophy Code(s): G71.0 - Muscular dystrophy Status: Chronic - Plan Pt was seen for syncopal episodes at home. Pt has increased activities and has had no episodes of dizziness or syncope. VS are stable. Cardiac enzymes slightly abnormal but not trending. ICD interrogation showed no recent therapies or tachy arrhythmias. Neurologic evaluation in progress. Will stay off Nitro paste due to headache. Continue to monitor tele. Ortho stats are negative. Increase activities as tolerated. Pt evaluation. Dr. Araujo, her primary care cnc applications engineer, will take over her care tomorrow. The plan was discussed with the family. The patient was seen and evaluated by Dr. Bethea who participated in care, management and decision making. <Zoë Bethea - Last Filed: 03/06/18 13:26> Physical Exam Vital signs: Vital Signs 03/05/18 15:33 Temperature 95.7 F L Pulse Rate 85 Respiratory Rate 18 Blood Pressure 148/66 H Pulse Oximetry 97 Intake & Output 03/05/18 03/06/18 03/06/18 18:59 06:59 18:59 Intake Total 1000 / 1000 Balance 1000 / 1000 Intake: IV 1000 / 1000 NS Inj 1,000 ML @ 100 mls/hr IV 1000 / 1000 .CONT .Q10H [facility] Rx#:[id number] Assessment and Plan - Assessment (1) Mild renal insufficiency Code(s): N28.9 - Disorder of kidney and ureter, unspecified Status: Acute (2) Episode of syncope Code(s): R55 - Syncope and collapse Status: Acute (3) Seizure Code(s): R56.9 - Unspecified convulsions Status: Chronic (4) HTN (hypertension) Code(s): I10 - Essential (primary) hypertension Status: Acute (5) Deep vein thrombosis (DVT) of left lower extremity Code(s): I82.402 - Acute embolism and thrombosis of unspecified deep veins of left lower extremity Status: Chronic (6) Muscular dystrophy Code(s): G71.0 - Muscular dystrophy Status: Chronic - Attending Attestation Patient seen and examined. I reviewed and agree with the findings and plan presented. Dr. Araujo will take over her cardiology care tomorrow.
[2018-03-05] MEDS ORDERED: levETIRAcetam 500 MG Tablet PO SCH (21:00)
--- NOTE | 2018-03-05 21:34 | MB ---
cc: Oniel Osborne MD, PhD DATE: 03/05/2018 REASON FOR CONSULTATION: Syncope. HISTORY OF PRESENT ILLNESS: Mr. Garcia is a very nice 77-year-old woman with muscular dystrophy, history of seizure disorder, for which she takes Keppra. She is admitted now with an episode of loss of consciousness on Tuesday. She was at dinner with her family. They were walking out of the restaurant and after a short period of time she started feeling lightheaded and faint. She sat down on her walker and then lost consciousness. Her family stated that she passed out. There was no tonic-clonic activity, no focal symptoms. She was out for a period of time and when EVAC arrived, she was very hypotensive and was found to be dehydrated. She has since received IV fluids and is back to her baseline state. She has had 7 of these episodes in the past 5 years, last on being about a year ago. PAST MEDICAL HISTORY: History of seizure disorder, history of muscular dystrophy, history of defibrillator placement. MEDICATIONS AT HOME: She takes Keppra, Cymbalta and aspirin. NEUROLOGIC EXAMINATION: VITAL SIGNS: Her blood pressure is 148/66, pulse is 85, respiratory rate is 18, temperature 95.7 degrees. HIGHER CORTICAL FUNCTIONS: Normal. CRANIAL NERVES: Intact. MOTOR EXAM: She has 5/5 strength of all major groups distally with 4/5 proximal strength. IMAGING STUDIES: Her CT of the brain shows no acute change. She has evidence of low density ischemic changes in the white matter, which appear to be chronic. Her EEG is normal. LABORATORY DATA: White count 4500, hemoglobin is 10.4, hematocrit 31%, platelet count 151,000. PT 13.0, INR 1.3, APTT 28.4. Sodium is 145, potassium 5.6, chloride 114, CO2 28.9. The BUN is 43, creatinine 0.96, GFR is 56. IMPRESSION: Syncope, probably related to hypotension. I do not think this was a seizure or transient ischemic accident or stroke. RECOMMENDATIONS: I discussed with the patient the importance of maintaining her hydration. No further neurological recommendations. At the present time, the patient is stable neurologically for discharge. Oniel Osborne MD, PhD LYLE/SB , 07:03 PM , 09:32 PM
== END 2018-03-05 19:53 | disposition home or self-care (01) ==
LOC: NEPC 22:19 → NEPHCDU 22:19 → NEDA 22:19 → NEPHCDU 03-04 04:04
PROVIDERS: ADMIT Family Medicine; ATTEND Family Medicine